=== PATIENT | male | born 1955 | race Caucasian/White ===

== ENCOUNTER 2017-08-15 08:52 | Day surgery (SDC) | payer BC ==
[~2017-08-15 08:52] MED LIST: Lactated Ringers 1,000 ML IV SCH; Lidocaine 2% 5 ML SDV ONE; Propofol 200 MG/20 ML SDV ONE
--- NOTE | 2017-08-15 10:25 | PCM.PREANE ---
Preanesthetic Assessment - Anesthesia/Transfusion/Family Hx Anesthesia History: No Prior Anesthesia Transfusion History: No Prior Transfusion(s) - Review of Systems General: No Symptoms Pulmonary: No Symptoms Cardiovascular: No Symptoms Gastrointestinal: No Symptoms Neurological: No Symptoms Other: Reports: None - Physical Assessment NPO Status Date: 08/14/17 O2 Sat by Pulse Oximetry: 97 Respiratory Rate: 16 Vital Signs: Last Vital Signs Temp 36.2 C 08/15/17 10:14 Pulse 79 08/15/17 10:14 Resp 16 08/15/17 10:14 BP 125/79 08/15/17 10:14 Pulse Ox 97 08/15/17 10:14 Height: 1.64 m Weight: 79.379 kg ASA Class: 2 Mental Status: Alert & Oriented x3 Airway Class: Mallampati = 1 Dentition: Reports: Normal Dentition ROM/Head Extension: Full Lungs: Clear to Auscultation, Normal Respiratory Effort Cardiovascular: Regular Rate, Regular Rhythm - Allergies Allergies/Adverse Reactions: Allergies Allergy/AdvReac Type Severity Reaction Status Date / Time No Known Allergies Allergy Verified 08/12/17 12:25 - Anesthesia Plan Pre-Op Medication Ordered: None - Acknowledgements Anesthesia Type Planned: MAC Pt an Appropriate Candidate for the Planned Anesthesia: Yes Alternatives and Risks of Anesthesia Discussed w Pt/Guardian: Yes Pt/Guardian Understands and Agrees with Anesthesia Plan: Yes Additional Comments: PMH: HTN, HLD PreAnesthesia Questionnaire Cardiovascular History: Reports: High Cholesterol, Hypertension Respiratory History: Reports: Other (See Below) Other Respiratory History: pneumonia 20 yrs ago Gastrointestinal History: Reports: None Genitourinary History: Reports: Renal Calculus Musculoskeletal History: Reports: Other (See Below) Other Musculoskeletal History: scoliosis Neurological History: Reports: None - Past Surgical History Head Surgeries/Procedures: Reports: None Neurological Surgical History: Reports: Scoliosis - SUBSTANCE USE Smoking Status *Q: Former Smoker Tobacco Use Within Last Twelve Months: No Recreational Drug Use History: No - HOME MEDS Home Medications: Home Meds Hydrochlorothiazide 12.5 mg PO DAILY 08/12/17 [History] Lisinopril 10 mg PO DAILY 08/12/17 [History] Multivitamin [Multivitamins] 1 tab PO DAILY 08/12/17 [History] Simvastatin [Zocor] 40 mg PO DAILY 08/12/17 [History] - CURRENT (IN HOUSE) MEDS Current Meds: Current Medications Lactated Ringer's (Ringers, Lactated) 1,000 mls @ 125 mls/hr IV ASDIRECTED JONI Last Admin: 08/15/17 10:16 Dose: 125 mls/hr Discontinued Medications Lidocaine (Xylocaine-Mpf 2%) Confirm Administered Dose 5 ml .ROUTE .STK-MED ONE Stop: 08/15/17 08:53 Propofol (Diprivan 20 Ml) Confirm Administered Dose 400 mg .ROUTE .STK-MED ONE Stop: 08/15/17 08:53
--- NOTE | 2017-08-15 12:18 | PCM.OPNOTE ---
- General Post-Op/Procedure Note Date of Surgery/Procedure: 08/15/17 Operative Procedure(s): Colonoscopy with cold rectal polypectomy Pre Op Diagnosis: Desire for colorectal cancer screening Post-Op Diagnosis: Rectal polyp Anesthesia Technique: MAC (ASA II) Primary Surgeon: Taye Zhong Condition: Good Free Text/Narrative:: Dictation [id number] CPT CODE 58484
[2017-08-15] MEDS ORDERED: Lactated Ringers 1,000 ML IV SCH (12:30)
--- NOTE | 2017-08-15 12:50 | PCM48HPAN ---
Post Anesthesia Note - EVALUATION WITHIN 48HRS OF ANESTHETIC Vital Signs in Normal Range: Yes Patient Participated in Evaluation: Yes Respiratory Function Stable: Yes Airway Patent: Yes Cardiovascular Function Stable: Yes Hydration Status Stable: Yes Pain Control Satisfactory: Yes Nausea and Vomiting Control Satisfactory: Yes Mental Status Recovered: Yes
--- NOTE | 2017-08-15 12:50 | PCM.POSTAN ---
POST ANESTHESIA ASSESSMENT - MENTAL STATUS Mental Status: Alert, Oriented - RESPIRATORY Respiratory Status: Respiratory Rate WNL, Airway Patent, O2 Saturation Stable - CARDIOVASCULAR CV Status: Pulse Rate WNL, Blood Pressure Stable - GASTROINTESTINAL GI Status: No Symptoms - POST OP HYDRATION Hydration Status: Adequate & Stable
--- NOTE | 2017-08-15 13:08 | OR ---
SURGEON: Taye Zhong M.D. DATE OF PROCEDURE: 08/15/2017 OPERATION PERFORMED: Colonoscopy with cold rectal polypectomy. ANESTHESIA: MAC. ASA CLASSIFICATION: II. PREOPERATIVE DIAGNOSIS: Desire for colorectal cancer screening. POSTOPERATIVE DIAGNOSIS: Rectal polyp. DESCRIPTION OF PROCEDURE: The patient was taken to the endoscopy room, positioned on the endoscopy table in the left lateral decubitus position. Time-out was called for appropriate identification of the patient and procedure. Monitored anesthesia care was provided. The colonoscope was inserted into the rectum and advanced with moderate difficulty to the cecum. The colonoscope was retroflexed in the cecum to visualize the ascending colon from below, then straightened and slowly withdrawn. Cecum ascending colon, hepatic flexure, transverse colon, splenic flexure, descending colon, and sigmoid colon showed no tumors, polyps, diverticula, or angiodysplastic changes. One small polyp was encountered in the rectum and removed with the cold biopsy forceps. The colonoscope was then retroflexed to visualize the anal orifice from above. No tumors, polyps, or acute hemorrhoidal changes were noted. The colonoscope was then straightened, the rectum aspirated, and the colonoscope removed. The patient tolerated the procedure well and was taken to recovery room in satisfactory condition. KIRSTIN / CHEMA /[id number]
== END 2017-08-15 12:53 | disposition home or self-care (01) ==
LOC: MW.SDS 08:52
PROVIDERS: ATTEND Surgery
DX: Z12.11 Encounter for screening for malignant neoplasm of colon (principal); D12.8 Benign neoplasm of rectum; I10 Essential (primary) hypertension; E78.00 Pure hypercholesterolemia, unspecified; Z79.899 Other long term (current) drug therapy; Z87.891 Personal history of nicotine dependence
CPT/HCPCS: 45380; 88305; J7120; J2704

== ENCOUNTER 2021-06-03 17:12 | Emergency (ER) | payer MEDICARE, OTHER ==
[2021-06-03] MEDS ORDERED: cefTRIAXone 1 GM in Premix Bag 1 BAG IV ONE (17:34)
[2021-06-03] MEDS ORDERED: Sodium Chloride 0.9% 2.5 ML Syringe FLUSH PRN (17:34)
[2021-06-03] MEDS ORDERED: Sodium Chloride 0.9% 10 ML Syringe FLUSH PRN (17:34)
[2021-06-03] MEDS ORDERED: Sodium Chloride 0.9% 1,000 ML IV ONE (17:37)
--- NOTE | 2021-06-03 17:37 | EDM.PDOC ---
<Bryant Nation - Last Filed: 06/03/21 19:38> ED HPI GENERAL MEDICAL PROBLEM - General Chief Complaint: Syncope Stated Complaint: EMS ARRIVAL Time Seen by Provider: 06/03/21 17:13 - History of Present Illness INITIAL COMMENTS - FREE TEXT/NARRATIVE: History of present illness: [] Patient is here for near syncope and dizziness. This morning he says he felt a little lightheaded and he passed out. He denies any injury. He felt better afterwards. This afternoon he began to feel lightheaded again and almost passed out but did not pass out. The patient's recent history is that 6 days ago he saw his doctor after 2 days of feeling dizzy. The dizziness is visual for vertiginous kind of rotation. Things seem to move and he says it is worse when he has his left eye open when he closes left eye it seems to be better. The patient got Dramamine and meclizine and got better. For several days he was markedly improved. He began to feel that way a little bit again today before the syncopal episode. The patient has a cough for about 6 days. It is a deep cough he says that he does not produce any sputum. The patient had a significant serious episode of pneumonia in his youth. He has not had any recent episodes. He is not vaccinated for COVID-19 he is presenting during our pandemic. Review of systems: As per history of present illness and below otherwise all systems reviewed and negative. Past medical history: As per history of present illness and as reviewed below otherwise noncontributory. Surgical history: As per history of present illness and as reviewed below otherwise noncon tributory. Social history: No reported history of drug or alcohol abuse. Family history: As per history of present illness and as reviewed below otherwise noncontributory. Physical exam: Constitutional - well developed, well-nourished and in no acute distress HEENT - normocephalic, no evidence of trauma - external nose and mouth normal - no mass in neck and no JVD - mucosae moist EYES - full EOM, PERRL, no icterus - no evidence of inflammation, injection, or drainage Respiratory - no respiratory distress, equal bilateral expansion, lungs with scattered rales mostly in the right base. Cardiovascular - Regular Rhythm with S1 and S2 appreciated and no murmur, gallop or rub. GI - abdomen soft without distension or organomegaly - normal bowel sounds - no guard or rebound Musculoskeletal no gross deformity of long bones or joints - no tenderness, swelling or edema Neurologic - Alert and oriented times four - CN II-XII grossly intact - motor sensory and coordination symmetrically normal Psychiatric - appropriate mood and affect with normal thought content Hematologic - No petechiae or purpura - mucosa appropriate color and sclera not pale - normal nail bed color and refill Integument - no rash or evidence of trauma - normal turgor Diagnostics: [] Therapeutics: [] Impression: [] Plan: [] Definitive disposition and diagnosis as appropriate pending reevaluation and colby baugh of above. - Related Data Allergies Allergy/AdvReac Type Severity Reaction Status Date / Time No Known Allergies Allergy Verified 06/03/21 17:25 Home Meds: Home Meds Simvastatin [Zocor] 40 mg PO DAILY 08/12/17 [History] hydroCHLOROthiazide [Hydrochlorothiazide] 12.5 mg PO DAILY 08/12/17 [History] Amoxicillin 875 mg PO BID 06/03/21 [History] Meclizine [Antivert] 25 mg PO TID PRN 06/03/21 [History] Past Medical History Cardiovascular History: Reports: High Cholesterol, Hypertension Respiratory History: Reports: Other (See Below) Other Respiratory History: pneumonia 20 yrs ago Gastrointestinal History: Reports: None Genitourinary History: Reports: Renal Calculus Musculoskeletal History: Reports: Other (See Below) Other Musculoskeletal History: scoliosis Neurological History: Reports: None - Past Surgical History Head Surgeries/Procedures: Reports: None Neurological Surgical History: Reports: Scoliosis ED ROS GENERAL - Review of Systems Review Of Systems: Comprehensive ROS is negative, except as noted in HPI. ED EXAM, GENERAL - Physical Exam Exam: See Below Free Text/Narrative:: My physical exam is in the HPI #1 Interpretation EKG Interpretation Comments: EKG done 06/03/2021 at 5:47 PM shows a sinus rhythm with a heart rate of 80 and a NM interval 166. QT durations 462 and axis -29 there is a borderline intraventricular conduction delay with QRS duration of 114. There is no prior for comparison there is no obvious acute MT. Impression no obvious acute injury Departure - Departure Disposition: Home, Self-Care 01 Condition: Good Clinical Impression: Vertigo, Syncope, Viral syndrome, COVID-19 virus infection - Discharge Information Instructions: Vertigo, [id number], Viral Illness, Adult, Syncope, [id number], Symptoms of COVID-19 - [facility] [place] (10/30/2020), COVID-19 Frequently Asked Questions, What You Should Know About COVID-19 to Protect Yourself and Others - CDC, 10 Things You Can Do to Manage Your COVID-19 Symptoms at Home - [facility] [place] (03/23/2021) Referrals: Eulalio Horn MD [Primary Care Provider] - Forms: ED Department Discharge Additional Instructions: Come to have his Zio patch placed. Drink tons of fluids. Follow-up with primary doctor. [facility] [address] [place] [id number] [facility] [address] [place] [id number] The following information is given to patients seen in the emergency department who are being discharged to home. This information is to outline your options for follow-up care. We provide all patients seen in our emergency department with a follow-up referral. The need for follow-up, as well as the timing and circumstances, are variable depending upon the specifics of your emergency department visit. If you don't have a primary care physician on staff, we will provide you with a referral. We always advise you to contact your personal physician following an emergency department visit to inform them of the circumstance of the visit and for follow-up with them and/or the need for any referrals to a consulting specialist. The emergency department will also refer you to a specialist when appropriate. This referral assures that you have the opportunity for follow-up care with a specialist. All of these measure are taken in an effort to provide you with optimal care, which includes your follow-up. Under all circumstances we always encourage you to contact your private physician who remains a resource for coordinating your care. When calling for follow-up care, please make the office aware that this follow-up is from your recent emergency room visit. If for any reason you are refused follow-up, please contact the [facility] Emergency Department at and asked to speak to the emergency department charge nurse. 1. Your COVID-19 screening is positive. That means you do have the coronavirus and you are considered contagious. Your vital signs and oxygen saturation are well enough that you were able to monitor your symptoms at home. Continue to monitor for trouble breathing, new confusion or inability to arouse, bluish lips or face or any of the other symptoms we discussed -if this occurs please return to the emergency room. 2. Please self quarantine over the next 10 days. Inform any persons that you have been in contact with since you started becoming symptomatic that you have tested positive; they should be made aware and take the appropriate steps as needed. 3. You can take NyQuil during the evening to help get a restful night sleep. May alternate Tylenol and ibuprofen as needed for pain and fever management. 4. The [facility] department will be calling you and following up with you. [facility] [place] COVID 19 Hotline phone number , They are open Friday - Friday 7am - 7pm. Follow up with your primary care provider for re-evaluation and re-testing after the 10 day quarantine and discuss when you should be seen. As we discussed, if you change your mind or want further treatment with Regeneron, please contact your doctor so they can assist you with getting the infusion. Please drink plenty of fluids. Get plenty of rest. Move slowly. It would be helpful to obtain a pulse oximeter from the pharmacy to that he can keep an eye on your oxygen level. If your oxygen levels are dropped below 90%, he should return to the ER so they can be reevaluated. Sepsis Event Note (ED) - Evaluation Sepsis Screening Result: No Definite Risk <Mook Wilhelm - Last Filed: 06/03/21 22:00> ED HPI GENERAL MEDICAL PROBLEM - History of Present Illness INITIAL COMMENTS - FREE TEXT/NARRATIVE: 06/03/2021 9:41 PM. Signout received at 7 PM. This is a 66-year-old gentleman who presents ER today secondary to feeling dizzy for a couple days as well as having syncopal episodes. Patient was seen by his doctor several days ago secondary to not feeling well. Patient's coronavirus test today is positive. Patient symptoms are highly likely secondary to his coronavirus infection. Patient's labs and work-up in the ER thus far has been negative. Given his episodes of syncope, Dr. Nation has ordered for the patient a Zio patch. Patient will be discharged home. Patient's pulse ox has been 97% on room air here in the ED. At this time he does not meet criteria for inpatient level of care for coronavirus. Patient will be given counseling on Regeneron treatment. Patient was given the information sheet but at this time he is not interested in Regeneron therapy until he speaks his own family doctor. Reassessment at the time of disposition demonstrates that the patient is in no acute distress. The patient has remained stable throughout the entire ED visit and is without objective evidence for acute process requiring urgent intervention or hospitalization. The patient is stable for discharge, counseling is provided as documented above, discussed symptomatic treatment and specific conditions for return. I have spoken with the patient/caregiver and discussed todays findings, in addition to providing specific details for the plan of care. Questions are answered and there is agreement with the plan. ED ROS GENERAL - Review of Systems Review Of Systems: See Below ED EXAM, GENERAL - Physical Exam Exam: See Below Course - Vital Signs Last Recorded V/S: Last Vital Signs Temp 97.2 F 06/03/21 17:21 Pulse 102 H 06/03/21 21:10 Resp 18 06/03/21 19:54 BP 124/82 06/03/21 21:10 Pulse Ox 93 L 06/03/21 21:10 - Orders/Labs/Meds Orders: Active Orders 24 hr Category Date Time Status Head wo Cont [CT] Stat Exams 06/03/21 19:04 Taken CULTURE BLOOD [BC] Stat Lab 06/03/21 17:39 Received CULTURE BLOOD [BC] Stat Lab 06/03/21 17:45 Received Sodium Chloride 0.9% [Saline Flush] Med 06/03/21 17:34 Active 10 ml FLUSH ASDIRECTED PRN Sodium Chloride 0.9% [Saline Flush] Med 06/03/21 17:34 Active 2.5 ml FLUSH ASDIRECTED PRN Blood Culture x2 Reflex Set [OM.PC] Stat Oth 06/03/21 17:35 Ordered Saline Lock Insert [OM.PC] Stat Oth 06/03/21 17:34 Ordered Medication Orders Sodium Chloride (Sodium Chloride 0.9% 10 Ml Syringe) 10 ml FLUSH ASDIRECTED PRN PRN Reason: Keep Vein Open Last Admin: 06/03/21 18:04 Dose: 10 ml Documented by: [id number] Sodium Chloride (Sodium Chloride 0.9% 2.5 Ml Syringe) 2.5 ml FLUSH ASDIRECTED PRN PRN Reason: Keep Vein Open Last Admin: 06/03/21 18:03 Dose: 2.5 ml Documented by: [id number] Labs: Laboratory Tests 06/03/21 06/03/21 06/03/21 Range/Units 17:28 17:28 17:28 WBC 6.04 (4.0-11.0) K/uL RBC 4.65 (4.50-5.90) M/uL Hgb 15.2 (13.0-17.0) g/dL Hct 43.8 (38.0-50.0) % MCV 94.2 (80.0-98.0) fL MCH 32.7 H (27.0-32.0) pg MCHC 34.7 (31.0-37.0) g/dL RDW Std Deviation 47.9 (28.0-62.0) fl RDW Coeff of Kellie 14 (11.0-15.0) % Plt Count 135 L (150-400) K/uL MPV 9.80 (7.40-12.00) fL Neut % (Auto) 68.3 (48.0-80.0) % Lymph % (Auto) 15.1 L (16.0-40.0) % Gaston % (Auto) 16.1 H (0.0-15.0) % Eos % (Auto) 0.2 (0.0-7.0) % Baso % (Auto) 0.3 (0.0-1.5) % Neut # (Auto) 4.1 (1.4-5.7) K/uL Lymph # (Auto) 0.9 (0.6-2.4) K/uL Gaston # (Auto) 1.0 H (0.0-0.8) K/uL Eos # (Auto) 0.0 (0.0-0.7) K/uL Baso # (Auto) 0.0 (0.0-0.1) K/uL Nucleated RBC % 0.0 /100WBC Nucleated RBCs # 0 K/uL Sodium 141 (136-148) mmol/L Potassium 3.2 L (3.5-5.1) mmol/L Chloride 102 (98-107) mmol/L Carbon Dioxide 28.1 (21.0-32.0) mmol/L BUN 19 H (7.0-18.0) mg/dL Creatinine 1.0 (0.8-1.3) mg/dL Est Cr Clr Drug Dosing 66.10 mL/min Estimated GFR (MDRD) > 60.0 ml/min Glucose 130 H (74-106) mg/dL Lactic Acid 1.6 (0.4-2.0) mmol/L Calcium 8.2 L (8.5-10.1) mg/dL Total Bilirubin 0.5 (0.2-1.0) mg/dL AST 23 (15-37) IU/L ALT 26 (14-63) IU/L Alkaline Phosphatase 40 L (46-116) U/L Troponin I < 0.050 (0.000-0.056) ng/mL Total Protein 6.7 (6.4-8.2) g/dL Albumin 3.2 L (3.4-5.0) g/dL Globulin 3.5 (2.6-4.0) g/dL Albumin/Globulin Ratio 0.9 (0.9-1.6) Urine Color Urine Appearance Urine pH (5.0-8.0) Ur Specific Raton (1.001-1.035) Urine Protein (NEGATIVE) mg/dL Urine Glucose (UA) (NEGATIVE) mg/dL Urine Ketones (NEGATIVE) mg/dL Urine Occult Blood (NEGATIVE) Urine Nitrite (NEGATIVE) Urine Bilirubin (NEGATIVE) Urine Urobilinogen (<2.0) EU/dL Ur Leukocyte Esterase (NEGATIVE) SARS-CoV-2 RNA (KAYLEE) (NEGATIVE) 06/03/21 06/03/21 Range/Units 18:27 19:36 WBC (4.0-11.0) K/uL RBC (4.50-5.90) M/uL Hgb (13.0-17.0) g/dL Hct (38.0-50.0) % MCV (80.0-98.0) fL MCH (27.0-32.0) pg MCHC (31.0-37.0) g/dL RDW Std Deviation (28.0-62.0) fl RDW Coeff of Kellie (11.0-15.0) % Plt Count (150-400) K/uL MPV (7.40-12.00) fL Neut % (Auto) (48.0-80.0) % Lymph % (Auto) (16.0-40.0) % Gaston % (Auto) (0.0-15.0) % Eos % (Auto) (0.0-7.0) % Baso % (Auto) (0.0-1.5) % Neut # (Auto) (1.4-5.7) K/uL Lymph # (Auto) (0.6-2.4) K/uL Gaston # (Auto) (0.0-0.8) K/uL Eos # (Auto) (0.0-0.7) K/uL Baso # (Auto) (0.0-0.1) K/uL Nucleated RBC % /100WBC Nucleated RBCs # K/uL Sodium (136-148) mmol/L Potassium (3.5-5.1) mmol/L Chloride (98-107) mmol/L Carbon Dioxide (21.0-32.0) mmol/L BUN (7.0-18.0) mg/dL Creatinine (0.8-1.3) mg/dL Est Cr Clr Drug Dosing mL/min Estimated GFR (MDRD) ml/min Glucose (74-106) mg/dL Lactic Acid (0.4-2.0) mmol/L Calcium (8.5-10.1) mg/dL Total Bilirubin (0.2-1.0) mg/dL AST (15-37) IU/L ALT (14-63) IU/L Alkaline Phosphatase (46-116) U/L Troponin I (0.000-0.056) ng/mL Total Protein (6.4-8.2) g/dL Albumin (3.4-5.0) g/dL Globulin (2.6-4.0) g/dL Albumin/Globulin Ratio (0.9-1.6) Urine Color YELLOW Urine Appearance CLEAR Urine pH 6.0 (5.0-8.0) Ur Specific Raton 1.025 (1.001-1.035) Urine Protein NEGATIVE (NEGATIVE) mg/dL Urine Glucose (UA) NEGATIVE (NEGATIVE) mg/dL Urine Ketones NEGATIVE (NEGATIVE) mg/dL Urine Occult Blood NEGATIVE (NEGATIVE) Urine Nitrite NEGATIVE (NEGATIVE) Urine Bilirubin NEGATIVE (NEGATIVE) Urine Urobilinogen 0.2 (<2.0) EU/dL Ur Leukocyte Esterase NEGATIVE (NEGATIVE) SARS-CoV-2 RNA (KAYLEE) POSITIVE H (NEGATIVE) Meds: Medications Generic Name Dose Route Start Last Admin Trade Name Freq PRN Reason Stop Dose Admin Sodium Chloride 10 ml 06/03/21 17:34 06/03/21 18:04 Sodium Chloride 0.9% 10 Ml Syringe FLUSH 10 ml ASDIRECTED PRN Administration Keep Vein Open Sodium Chloride 2.5 ml 06/03/21 17:34 06/03/21 18:03 Sodium Chloride 0.9% 2.5 Ml Syringe FLUSH 2.5 ml ASDIRECTED PRN Administration Keep Vein Open Discontinued Medications Generic Name Dose Route Start Last Admin Trade Name Freq PRN Reason Stop Dose Admin Ceftriaxone Sodium/Dextrose 1 50 mls @ 100 mls/hr 06/03/21 17:34 06/03/21 18:03 gm/ Premix IV 06/03/21 18:03 100 mls/hr ONETIME ONE Administration Sodium Chloride 1,000 mls @ 1,000 mls/hr 06/03/21 17:37 06/03/21 18:03 Normal Saline IV 06/03/21 18:36 1,000 mls/hr .Bolus ONE Administration Departure - Departure Time of Disposition: 21:53 Sepsis Event Note (ED) - Focused Exam Vital Signs: Vital Signs Temp Pulse Resp BP Pulse Ox 06/03/21 21:10 102 H 124/82 93 L 06/03/21 19:54 78 18 126/78 97 06/03/21 17:21 97.2 F 84 18 118/76 94 L
[2021-06-03 18:02] LABS: BLOOD UREA NITROGEN,BUN 19 mg/dL (7.0-18.0); CARBON DIOXIDE,CO2 28.1 mmol/L (21.0-32.0); CHLORIDE,CL 102 mmol/L (98-107); GLUCOSE RANDOM 130 mg/dL (74-106); POTASSIUM,K 3.2 mmol/L (3.5-5.1); SODIUM,NA 141 mmol/L (136-148)
--- NOTE | 2021-06-03 18:24 | CR ---
Indication: Cough. Technique: AP portable view of the chest. Comparison: March 17, 2013. Findings: The heart is normal in size. The lungs are clear. No infiltrate, pleural effusion, or pneumothorax is identified. Impression: No acute cardiopulmonary process Dictated by Marylou Wilder MD @ 06/03/2021 6:23:42 PM (Electronically Signed)
--- NOTE | 2021-06-03 21:53 | CT ---
Indication: Vertigo. Technique: Multiple contiguous axial images were obtained from the skullbase to the vertex without intravenous contrast enhancement. Please note that all CT scans at this facility use dose modulation, iterative reconstruction, and/or weight-based dosing when appropriate to reduce radiation dose to as low as reasonably achievable. Comparison: None Findings: The ventricles are symmetric and normal in size morphology. 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 No intra-axial or extra-axial hemorrhage is identified. No mass, mass effect or midline shift is identified. The bony calvarium is intact. Mild mucosal thickening is identified within the bilateral maxillary sinuses, ethmoid air cells, and frontal sinuses. Impression: No acute intracranial process Please note that all CT scans at this facility use dose modulation, iterative reconstruction, and/or weight-based dosing when appropriate to reduce radiation dose to as low as reasonably achievable. Dictated by Marylou Wilder MD @ 06/03/2021 9:51:23 PM (Electronically Signed)
== END 2021-06-03 22:25 | disposition home or self-care (01) ==
LOC: MW.ED 17:12
DX: U07.1 COVID-19 (principal); B34.9 Viral infection, unspecified; R55 Syncope and collapse; R42 Dizziness and giddiness; I10 Essential (primary) hypertension; E78.00 Pure hypercholesterolemia, unspecified; Z79.899 Other long term (current) drug therapy
CPT/HCPCS: 36415; 70450; 71045; 80053; 81003; 83605; 84484; 85025; 87040; 87804; 93005; 96365; 99285; J0696; J7030; U0002

== ENCOUNTER 2021-06-07 12:26 | Inpatient (IN) | payer MEDICARE, OTHER ==
[2021-06-07] MEDS ORDERED: Dexamethasone 10 MG/ML SDV IVPUSH ONE (12:34)
[2021-06-07 13:11] LABS: BLOOD UREA NITROGEN,BUN 24 mg/dL (7.0-18.0); CARBON DIOXIDE,CO2 31.8 mmol/L (21.0-32.0); CHLORIDE,CL 97 mmol/L (98-107); GLUCOSE RANDOM 131 mg/dL (74-106); POTASSIUM,K 3.7 mmol/L (3.5-5.1); SODIUM,NA 137 mmol/L (136-148)
[2021-06-07] MEDS ORDERED: Iopamidol 755 MG/ML 500 ML Multipack Bottle IVPUSH STA (13:54)
--- NOTE | 2021-06-07 14:59 | CT ---
INDICATION: COVID-19, hypoxia. TECHNIQUE: CT pulmonary angiogram utilizing 100 mL of Isovue-370 intravenous contrast. Coronal and sagittal reformats. COMPARISON: Chest radiograph 06/03/2021. FINDINGS: The central airways are patent. Moderate widespread heterogeneous ground-glass opacities with a peripheral and basilar predominance. No pneumothorax or pleural effusion. - No pulmonary to rule filling defect identified. Normal cardiac size. Scattered coronary artery calcifications. No pericardial effusion or thoracic lymphadenopathy. Normal caliber thoracic aorta. - The imaged upper abdomen appears unremarkable. No suspicious osseous lesion. IMPRESSION: 1. Moderate widespread heterogeneous ground-glass opacities typical of COVID-19. 2. No evidence of acute PE. Dictated by Kane Luna MD @ 06/07/2021 2:56:50 PM Please note that all CT scans at this facility use dose modulation, iterative reconstruction, and/or weight-based dosing when appropriate to reduce radiation dose to as low as reasonably achievable. Dictated by: Kane Luna MD @ 06/07/2021 14:56:56 (Electronically Signed)
--- NOTE | 2021-06-07 14:59 | PCM.EKG ---
#1 Interpretation EKG Date: 06/07/21 Time: 12:39 Rhythm: NSR Rate (Beats/Min): 84 [place]: LAD-Left [place] Deviation P-Wave: Present QRS: Normal ST-T: Normal QT: Normal Comparison: No Change (06/03/21) EKG Interpretation Comments: Sinus Rhythm
--- NOTE | 2021-06-07 15:49 | EDM.PDOC ---
ED HPI GENERAL MEDICAL PROBLEM - General Chief Complaint: Respiratory Problem Stated Complaint: HEADACHE,FEVER Time Seen by Provider: 06/07/21 12:28 - History of Present Illness INITIAL COMMENTS - FREE TEXT/NARRATIVE: CHIEF COMPLAINT(S): Hypoxia HISTORY OF PRESENT ILLNESS: This is a 66-year-old man with a past medical history of of hyperlipidemia and hypertension and recent diagnosis of COVID-19 who comes to the emergency department with a chief complaint of hypoxia. The patient states that he has been monitoring his vitals and his oxygen levels did decrease into the 80s. He states that he came to the emergency department because of this. He states that a visit here the other day for syncopal event however he has had no further syncopal episodes. He denies any chest pain but states that he is experiencing shortness of breath and nonproductive cough. He denies any other symptoms such as lower extremity edema, recent travel, recent surgery or prior history of DVT or PE. REVIEW OF SYSTEMS: Constitutional: Denies fever, chills. Eyes: Denies eye pain Ears, Nose, Mouth, & Throat: Denies earache Cardiovascular: Denies chest pain Respiratory: Positive for shortness of breath, nonproductive cough, hypoxia Gastrointestinal: Denies Nausea, vomiting, diarrhea, hematochezia. Genitourinary: Denies hematuria Skin:Denies a rash MSK: Denies joint pain Neurological: Denies blurred vision Psychiatric: Denies depression PAST MEDICAL HISTORY: As per history of present illness and as reviewed below otherwise noncontributory. SURGICAL HISTORY: As per history of present illness and as reviewed below otherwise noncontributory. SOCIAL HISTORY: As per history of present illness and as reviewed below otherwise noncontributory. FAMILY HISTORY: As per history of present illness and as reviewed below otherwise noncontributory. EXAMINATION OF ORGAN SYSTEMS/BODY AREAS: Constitutional: Blood pressure is 101/64, heart rate 88, respiratory rate 20 with an oxygen saturation of 86% on room air. Temperature 37.1. On 3 L nasal cannula patient's pulse oximetry was 93%. General: Elderly man who is in no acute distress Psychiatric: Appropriate mood and affect. Eyes: No scleral icterus or conjunctival erythema ENMT: Moist mucous membranes. No pharyngeal erythema Cardiovascular: Regular, rate, and rhythm. No gallops, murmurs, or rubs. Bilateral upper extremity pulses symmetric and intact. No peripheral edema. No JVD. Respiratory: Lungs clear to auscultation bilaterally. No wheezes, rales, or rhonchi. Gastrointestinal: Soft, non-tender, non-distended. Normoactive bowel sounds Genitourinary: No suprapubic tenderness Musculoskeletal: Normal range of motion. Skin: No lesions or abrasions. Neurological: Alert, GCS 15 MEDICAL DECISION MAKING AND COURSE IN THE ED WITH INTERPRETATION/REVIEW OF FIDELINA GNOSTIC STUDIES: This is a 66-year-old and with a past medical history of hypertension, hyperlipidemia and recent diagnosis of COVID-19 with a prior syncopal event who comes to the emergency department with continued hypoxia, shortness of breath and nonproductive cough who is profoundly hypoxic on room air. We did place the patient on cardiac monitoring and pulse oximetry. athletic monitor revealed sinus rhythm and pulse oximetry with good waveform was 86% on room air. We placed 3 L nasal cannula on the patient and his oxygenation did improve to 93%. At this time given his history of syncope will obtain a CT angiogram of the chest to evaluate for PE. Obtain CBC, CMP, EKG and troponin. We will provide the patient with 6 mg of Decadron. Differential includes bacterial pneumonia, COVID-19 pneumonia, pulmonary embolism. EKG was obtained which did not reveal any acute signs of ischemia. Laboratory: CBC is unremarkable. INR is normal. CMP reveals hypochloremia at 97, elevated BUN at 24, hyperglycemia at 131, hypocalcemia at 8.4, hypoalbuminemia at 2.9. Alkaline phosphatase is low at 37. The radiological images were viewed by myself along with reading the report from the radiologist. CT angiogram of the chest does not reveal any evidence of pulmonary embolism with moderate widespread groundglass opacities. After imaging I did discuss results with the patient. At this time given that he is requiring supplemental oxygenation I did discuss admission versus outpatient oxygen therapy. He preferred admission at this time. Therefore I contacted the hospitalist and she did accept him for admission. DISPOSITION: The patient was admitted to the hospital in stable condition CONDITION: Serious PROCEDURES: Cardiac monitoring interpretation, pulse oximetry interpretation FINAL IMPRESSION(S)/DIAGNOSES: 1. Acute hypoxic respiratory distress secondary to COVID-19 pneumonia Critical Care Procedure Note Authorized and performed by: Jalen Elmore M.D. Critical Care Time: 36 minutes Due to a high probability of clinically significant, life threatening deterioration, the patient required my highest level of preparedness to intervene emergently and I personally spent this critical care time directly and personally managing the patient. This critical care time included obtaining a history, examining the patient, pulse oximetry; ordering and review of studies; arranging urgent treatment with development of a management plan; evaluation of a patients reponse to treatment; frequent assessment; and discussions with other providers. This critical care time was performed to assess and manage the high probability of imminent, life threatening deterioration that could result in multiorgan failure. It was exclusive of separate billable procedures and treating other patients. Please see MDM section and rest of the note for further information on patient assessment and treatment. Please see MDM section and rest of the note for further information on patient assessment and treatment. Jalen Elmore M.D. - Related Data Allergies Allergy/AdvReac Type Severity Reaction Status Date / Time No Known Allergies Allergy Verified 06/07/21 12:33 Home Meds: Home Meds Simvastatin [Zocor] 40 mg PO DAILY 08/12/17 [History] hydroCHLOROthiazide [Hydrochlorothiazide] 12.5 mg PO DAILY 08/12/17 [History] Meclizine [Antivert] 25 mg PO TID PRN 06/03/21 [History] Past Medical History - Past Health History Medical/Surgical History: Denies Medical/Surgical History HEENT History: Reports: None Cardiovascular History: Reports: High Cholesterol, Hypertension Respiratory History: Reports: Other (See Below) Other Respiratory History: pneumonia 20 yrs ago Gastrointestinal History: Reports: None Genitourinary History: Reports: Renal Calculus Musculoskeletal History: Reports: Other (See Below) Other Musculoskeletal History: scoliosis Neurological History: Reports: None Psychiatric History: Reports: None Endocrine/Metabolic History: Reports: None Hematologic History: Reports: None Immunologic History: Reports: None Oncologic (Cancer) History: Reports: None Dermatologic History: Reports: None - Infectious Disease History Infectious Disease History: Reports: None - Past Surgical History Head Surgeries/Procedures: Reports: None Neurological Surgical History: Reports: Scoliosis Social & Family History - Family History Family Medical History: No Pertinent Family History - Tobacco Use Tobacco Use Status *Q: Never Tobacco User Second Hand Smoke Exposure: No - Caffeine Use Caffeine Use: Reports: None - Recreational Drug Use Recreational Drug Use: No ED ROS GENERAL - Review of Systems Review Of Systems: See Below ED EXAM, GENERAL - Physical Exam Exam: See Below Course - Vital Signs Last Recorded V/S: Last Vital Signs Temp 36.6 C 06/07/21 17:20 Pulse 74 06/07/21 17:20 Resp 18 06/07/21 17:20 BP 102/66 06/07/21 17:20 Pulse Ox 92 L 06/07/21 17:20 - Orders/Labs/Meds Orders: Active Orders 24 hr Category Date Time Status Cardiac Monitoring [RC] Q8H Care 06/07/21 12:29 Active Pulse Oximetry [RC] ASDIRECTED Care 06/07/21 12:29 Active Medication Orders Acetaminophen (Acetaminophen 325 Mg Tab) 650 mg PO Q4H PRN PRN Reason: Pain (Mild 1-3)/fever Albuterol/Ipratropium (Albuterol/Ipratropium 4 Gm Inhalation [place]) 0 gm INH QID [facility] Last Admin: 06/07/21 20:10 Dose: 1 puff Documented by: HARRY Dexamethasone (Dexamethasone 4 Mg Tab) 6 mg PO DAILY [facility] Enoxaparin Sodium (Enoxaparin 40 Mg/0.4 Ml Syringe) 40 mg SUBCUT Q24H [facility] Last Admin: 06/07/21 18:21 Dose: 40 mg Documented by: ERIK Remdesivir 100 mg/ Sodium (Chloride) 100 mls @ 100 mls/hr IV Q24H [facility] Stop: 06/11/21 17:59 Pantoprazole Sodium 40 mg/ (Sodium Chloride) 10 mls @ 300 mls/hr IV Q24H [facility] Ondansetron HCl (Ondansetron 4 Mg/2 Ml Sdv) 4 mg IVPUSH Q4H PRN PRN Reason: Nausea/Vomiting Labs: Laboratory Tests 06/07/21 06/07/21 06/07/21 Range/Units 12:38 12:38 12:38 WBC 10.11 (4.0-11.0) K/uL RBC 4.72 (4.50-5.90) M/uL Hgb 15.2 (13.0-17.0) g/dL Hct 44.2 (38.0-50.0) % MCV 93.6 (80.0-98.0) fL MCH 32.2 H (27.0-32.0) pg MCHC 34.4 (31.0-37.0) g/dL RDW Std Deviation 46.8 (28.0-62.0) fl RDW Coeff of Kellie 14 (11.0-15.0) % Plt Count 214 (150-400) K/uL MPV 9.80 (7.40-12.00) fL Neut % (Auto) 85.9 H (48.0-80.0) % Lymph % (Auto) 4.5 L (16.0-40.0) % [place] % (Auto) 9.5 (0.0-15.0) % Eos % (Auto) 0.0 (0.0-7.0) % Baso % (Auto) 0.1 (0.0-1.5) % Neut # (Auto) 8.7 H (1.4-5.7) K/uL Lymph # (Auto) 0.5 L (0.6-2.4) K/uL [place] # (Auto) 1.0 H (0.0-0.8) K/uL Eos # (Auto) 0.0 (0.0-0.7) K/uL Baso # (Auto) 0.0 (0.0-0.1) K/uL Nucleated RBC % 0.0 /100WBC Nucleated RBCs # 0 K/uL INR 1.08 Sodium 137 (136-148) mmol/L Potassium 3.7 (3.5-5.1) mmol/L Chloride 97 L (98-107) mmol/L Carbon Dioxide 31.8 (21.0-32.0) mmol/L BUN 24 H (7.0-18.0) mg/dL Creatinine 1.2 (0.8-1.3) mg/dL Est Cr Clr Drug Dosing 53.17 mL/min Estimated GFR (MDRD) > 60.0 ml/min Glucose 131 H (74-106) mg/dL Calcium 8.4 L (8.5-10.1) mg/dL Magnesium 2.0 (1.8-2.4) mg/dL Total Bilirubin 0.5 (0.2-1.0) mg/dL AST 37 (15-37) IU/L ALT 30 (14-63) IU/L Alkaline Phosphatase 37 L (46-116) U/L Troponin I < 0.050 (0.000-0.056) ng/mL C-Reactive Protein 17.70 H (0.00-0.90) mg/dL Total Protein 7.1 (6.4-8.2) g/dL Albumin 2.9 L (3.4-5.0) g/dL Globulin 4.2 H (2.6-4.0) g/dL Albumin/Globulin Ratio 0.7 L (0.9-1.6) Meds: Medications Generic Name Dose Route Start Last Admin Trade Name Chon PRN Reason Stop Dose Admin Acetaminophen 650 mg 06/07/21 16:01 Acetaminophen 325 Mg Tab PO Q4H PRN Pain (Mild 1-3)/fever Albuterol/Ipratropium 0 gm 06/07/21 18:00 06/07/21 20:10 Albuterol/Ipratropium 4 Gm Inhalation [place] INH 1 puff QID JONI Administration Dexamethasone 6 mg 06/08/21 09:00 Dexamethasone 4 Mg Tab PO DAILY JONI Enoxaparin Sodium 40 mg 06/07/21 16:15 06/07/21 18:21 Enoxaparin 40 Mg/0.4 Ml Syringe SUBCUT 40 mg Q24H JONI Administration Remdesivir 100 mg/ Sodium 100 mls @ 100 mls/hr 06/08/21 17:00 Chloride IV 06/11/21 17:59 Q24H JONI Pantoprazole Sodium 40 mg/ 10 mls @ 300 mls/hr 06/08/21 09:00 Sodium Chloride IV Q24H JONI Ondansetron HCl 4 mg 06/07/21 16:01 Ondansetron 4 Mg/2 Ml Sdv IVPUSH Q4H PRN Nausea/Vomiting Discontinued Medications Generic Name Dose Route Start Last Admin Trade Name Ramboq PRN Reason Stop Dose Admin Dexamethasone 6 mg 06/07/21 12:34 06/07/21 13:05 Dexamethasone 10 Mg/Ml Sdv IVPUSH 06/07/21 12:35 6 mg ONETIME ONE Administration Dexamethasone 5 mg 06/08/21 09:00 Dexamethasone 4 Mg Tab PO DAILY JONI Remdesivir 200 mg/ Sodium 250 mls @ 250 mls/hr 06/07/21 17:00 06/07/21 18:15 Chloride IV 06/07/21 17:59 250 mls/hr ONETIME ONE Administration Iopamidol 100 ml 06/07/21 13:54 06/07/21 13:55 Iopamidol 755 Mg/Ml 500 Ml Multipack Bottle IVPUSH 06/07/21 13:55 100 ml ONETIME STA Administration Departure - Departure Time of Disposition: 15:25 Disposition: Admitted As Inpatient 64 Clinical Impression: COVID-19 virus infection - Discharge Information Sepsis Event Note (ED) - Evaluation Sepsis Screening Result: No Definite Risk - Focused Exam Vital Signs: Vital Signs Temp Temp Pulse Resp BP Pulse Ox 06/07/21 15:06 96 06/07/21 14:53 36.5 C 82 15 106/68 95 06/07/21 13:19 84 17 97/58 L 93 L 06/07/21 12:37 82 20 106/71 93 L 06/07/21 12:35 37.8 C 06/07/21 12:28 37.1 C 88 20 101/64 86 L - My Orders Last 24 Hours: My Active Orders 06/07/21 12:29 Cardiac Monitoring [RC] Q8H Pulse Oximetry [RC] ASDIRECTED - Assessment/Plan Last 24 Hours: My Active Orders 06/07/21 12:29 Cardiac Monitoring [RC] Q8H Pulse Oximetry [RC] ASDIRECTED
[2021-06-07] MEDS ORDERED: Ondansetron 4 MG/2 ML SDV IVPUSH PRN (16:01)
[2021-06-07] MEDS ORDERED: REMDESIVIR 200 MG in Sodium Chloride 0.9% 250 ML IV ONE (17:00)
[2021-06-07] MEDS: Enoxaparin 40 MG/0.4 ML Syringe SUBCUT SCH (18:21)
--- NOTE | 2021-06-07 18:31 | PCM.HP.2 ---
H&P History of Present Illness - General Date of Service: 06/07/21 Admit Problem/Dx: Admission Diagnosis/Problem Admission Diagnosis/Problem Hypoxia History Limitations: Reports: No Limitations - History of Present Illness Initial Comments - Free Text/Narative: This is a 66-year-old and with a past medical history of hypertension, hyperlipidemia and recent diagnosis of COVID-19 on 03 June, with a prior syncopal event who comes to the emergency department with continued hypoxia, shortness of breath and nonproductive cough patient was found to be hypoxic on room air and hence was placed on 3 L nasal cannula on the patient and his oxygenation did improve to 93%. Laboratory: CBC is unremarkable. INR is normal. CMP reveals hypochloremia at 97, elevated BUN at 24, hyperglycemia at 131, hypocalcemia at 8.4, hypoalbuminemia at 2.9. Alkaline phosphatase is low at 37. CT angiogram of the chest does not reveal any evidence of pulmonary embolism with moderate widespread groundglass opacities. Patient was admitted to the hospital for acute hypoxic respiratory failure secondary to Covid. Patient is unvaccinated currently. - Related Data Allergies/Adverse Reactions: Allergies Allergy/AdvReac Type Severity Reaction Status Date / Time No Known Allergies Allergy Verified 06/07/21 12:33 Home Medications: Home Meds Simvastatin [Zocor] 40 mg PO DAILY 08/12/17 [History] hydroCHLOROthiazide [Hydrochlorothiazide] 12.5 mg PO DAILY 08/12/17 [History] Meclizine [Antivert] 25 mg PO TID PRN 06/03/21 [History] Past Medical History - Past Health History Medical/Surgical History: Denies Medical/Surgical History HEENT History: Reports: None Cardiovascular History: Reports: High Cholesterol, Hypertension Respiratory History: Reports: Other (See Below) Other Respiratory History: pneumonia 20 yrs ago Gastrointestinal History: Reports: None Genitourinary History: Reports: Renal Calculus Musculoskeletal History: Reports: Other (See Below) Other Musculoskeletal History: scoliosis Neurological History: Reports: None Psychiatric History: Reports: None Endocrine/Metabolic History: Reports: None Hematologic History: Reports: None Immunologic History: Reports: None Oncologic (Cancer) History: Reports: None Dermatologic History: Reports: None - Infectious Disease History Infectious Disease History: Reports: None - Past Surgical History Head Surgeries/Procedures: Reports: None Neurological Surgical History: Reports: Scoliosis Social & Family History - Family History Family Medical History: No Pertinent Family History - Tobacco Use Tobacco Use Status *Q: Never Tobacco User Second Hand Smoke Exposure: No - Caffeine Use Caffeine Use: Reports: None - Recreational Drug Use Recreational Drug Use: No H&P Review of Systems - Review of Systems: Review Of Systems: See Below General: Reports: Malaise, Weakness, Fatigue. Denies: Fever, Chills Pulmonary: Reports: Shortness of Breath, Cough, Sputum. Denies: Wheezing Cardiovascular: Reports: Dyspnea on Exertion. Denies: Chest Pain, Palpitations, Orthopnea Gastrointestinal: Denies: Abdominal Pain, Anorexia, Black Stool Genitourinary: Denies: Frequency, Burning Musculoskeletal: Denies: Neck Pain, Shoulder Pain, Arm Pain Skin: Denies: Cyanosis, Jaundice, Mottled Psychiatric: Denies: Confusion, Depression, Mood Lability Neurological: Denies: Confusion, Dizziness, Headache Hematologic/Lymphatic: Denies: Anemia, Easy Bleeding, Easy Bruising Exam - Exam Exam: See Below - Vital Signs Vital Signs: Last Vital Signs Temp 36.5 C 06/07/21 14:53 Pulse 82 06/07/21 14:53 Resp 15 06/07/21 14:53 BP 106/68 06/07/21 14:53 Pulse Ox 96 06/07/21 15:06 Weight: 74.843 kg - Exam Quality Assessment: Supplemental Oxygen Neck: Supple Lungs: Normal Respiratory Effort, Decreased Breath Sounds, Crackles, Rales Cardiovascular: Regular Rhythm, Normal S1, Normal S2 GI/Abdominal Exam: Normal Bowel Sounds, Soft, Non-Tender - Patient Data Lab Results Last 24 hrs: Laboratory Results - last 24 hr 06/07/21 06/07/21 06/07/21 Range/Units 12:38 12:38 12:38 WBC 10.11 (4.0-11.0) K/uL RBC 4.72 (4.50-5.90) M/uL Hgb 15.2 (13.0-17.0) g/dL Hct 44.2 (38.0-50.0) % MCV 93.6 (80.0-98.0) fL MCH 32.2 H (27.0-32.0) pg MCHC 34.4 (31.0-37.0) g/dL RDW Std Deviation 46.8 (28.0-62.0) fl RDW Coeff of Kellie 14 (11.0-15.0) % Plt Count 214 (150-400) K/uL MPV 9.80 (7.40-12.00) fL Neut % (Auto) 85.9 H (48.0-80.0) % Lymph % (Auto) 4.5 L (16.0-40.0) % [place] % (Auto) 9.5 (0.0-15.0) % Eos % (Auto) 0.0 (0.0-7.0) % Baso % (Auto) 0.1 (0.0-1.5) % Neut # (Auto) 8.7 H (1.4-5.7) K/uL Lymph # (Auto) 0.5 L (0.6-2.4) K/uL [place] # (Auto) 1.0 H (0.0-0.8) K/uL Eos # (Auto) 0.0 (0.0-0.7) K/uL Baso # (Auto) 0.0 (0.0-0.1) K/uL Nucleated RBC % 0.0 /100WBC Nucleated RBCs # 0 K/uL INR 1.08 Sodium 137 (136-148) mmol/L Potassium 3.7 (3.5-5.1) mmol/L Chloride 97 L (98-107) mmol/L Carbon Dioxide 31.8 (21.0-32.0) mmol/L BUN 24 H (7.0-18.0) mg/dL Creatinine 1.2 (0.8-1.3) mg/dL Est Cr Clr Drug Dosing 53.17 mL/min Estimated GFR (MDRD) > 60.0 ml/min Glucose 131 H (74-106) mg/dL Calcium 8.4 L (8.5-10.1) mg/dL Magnesium 2.0 (1.8-2.4) mg/dL Total Bilirubin 0.5 (0.2-1.0) mg/dL AST 37 (15-37) IU/L ALT 30 (14-63) IU/L Alkaline Phosphatase 37 L (46-116) U/L Troponin I < 0.050 (0.000-0.056) ng/mL C-Reactive Protein 17.70 H (0.00-0.90) mg/dL Total Protein 7.1 (6.4-8.2) g/dL Albumin 2.9 L (3.4-5.0) g/dL Globulin 4.2 H (2.6-4.0) g/dL Albumin/Globulin Ratio 0.7 L (0.9-1.6) Result Diagrams: 06/07/21 12:38 06/07/21 12:38 Sepsis Event Note - Evaluation Sepsis Screening Result: No Definite Risk - Focused Exam Vital Signs: Vital Signs Temp Temp Pulse Resp BP Pulse Ox 06/07/21 15:06 96 06/07/21 14:53 36.5 C 82 15 106/68 95 06/07/21 13:19 84 17 97/58 L 93 L 06/07/21 12:37 82 20 106/71 93 L 06/07/21 12:35 37.8 C 06/07/21 12:28 37.1 C 88 20 101/64 86 L Problem List Initiated/Reviewed/Updated: Yes Orders Last 24hrs: Active Orders 24 hr Category Date Time Status Admission Status [Patient Status] [ADT] Stat ADT 06/07/21 15:25 Active Ambulate [RC] ASDIRECTED Care 06/07/21 16:01 Active Antiembolic Devices [RC] PER UNIT ROUTINE Care 06/07/21 16:03 Active Cardiac Monitoring [RC] . DIRECTED Care 06/07/21 12:29 Active IS (RT) [RT Incentive Spirometry] [RC] Q2HWA Care 06/07/21 16:07 Active Oxygen Therapy [RC] PRN Care 06/07/21 16:01 Active Pulse Oximetry [RC] ASDIRECTED Care 06/07/21 12:29 Active RT Post Treatment Assessment [RC] Click to Edit Care 06/07/21 16:04 Active RT Pre-Treatment Assessment [RC] Click to Edit Care 06/07/21 16:04 Active VTE/DVT Education [RC] PER UNIT ROUTINE Care 06/07/21 16:01 Active Vital Signs [RC] Q4H Care 06/07/21 16:01 Active Heart Healthy Diet [DIET] Diet 06/07/21 Dinner Active CBC WITH AUTO DIFF [HEME] AM Lab 06/08/21 05:11 Ordered CMP [COMPREHENSIVE METABOLIC PN,CMP] [CHEM] AM Lab 06/08/21 05:11 Ordered MAGNESIUM [CHEM] AM Lab 06/08/21 05:11 Ordered PHOSPHORUS [CHEM] AM Lab 06/08/21 05:11 Ordered Acetaminophen [TylenoL] Med 06/07/21 16:01 Active 650 mg PO Q4H PRN Albuterol/Ipratropium [Combivent Respimat] Med 06/07/21 18:00 Active See Dose Instructions INH QID Enoxaparin [Lovenox] Med 06/07/21 16:15 Active 40 mg SUBCUT Q24H Ondansetron [Zofran] Med 06/07/21 16:01 Active 4 mg IVPUSH Q4H PRN Pantoprazole [ProTONIX IV] 40 mg Med 06/08/21 09:00 Active Sodium Chloride 0.9% [Normal Saline] 10 ml IV Q24H Remdesivir 100 mg Med 06/08/21 17:00 Active Sodium Chloride 0.9% [Normal Saline] 100 ml IV Q24H dexAMETHasone Med 06/08/21 09:00 Active 6 mg PO DAILY Sequential Compression Device [OM.PC] Per Unit Routine Oth 06/07/21 16:02 Ordered Medication Orders Acetaminophen (Acetaminophen 325 Mg Tab) 650 mg PO Q4H PRN PRN Reason: Pain (Mild 1-3)/fever Albuterol/Ipratropium (Albuterol/Ipratropium 4 Gm Inhalation [place]) 0 gm INH QID JONI Dexamethasone (Dexamethasone 4 Mg Tab) 6 mg PO DAILY [facility] Enoxaparin Sodium (Enoxaparin 40 Mg/0.4 Ml Syringe) 40 mg SUBCUT Q24H [facility] Last Admin: 06/07/21 18:21 Dose: 40 mg Documented by: ERIK Remdesivir 100 mg/ Sodium (Chloride) 100 mls @ 100 mls/hr IV Q24H JONI Stop: 06/11/21 17:59 Pantoprazole Sodium 40 mg/ (Sodium Chloride) 10 mls @ 300 mls/hr IV Q24H JONI Ondansetron HCl (Ondansetron 4 Mg/2 Ml Sdv) 4 mg IVPUSH Q4H PRN PRN Reason: Nausea/Vomiting Assessment/Plan Comment:: Patient is a 66-year-old male admitted for acute hypoxic respiratory failure se condary to Covid pneumonia Start patient on IV remdesivir, oral Decadron Start patient on Lovenox for DVT prophylaxis Start patient on scheduled Combivent Cough syrup as needed Incentive spirometry IV Zofran for nausea IV PPI daily for GI prophylaxis Check CMP daily monitor LFTs closely
[2021-06-07] MEDS: Albuterol/Ipratropium 4 GM Inhalation Spray INH SCH (20:10)
[2021-06-07] MEDS: Acetaminophen 325 MG Tab PO PRN (23:42)
[2021-06-07] MEDS: Codeine/guaiFENesin 10-100 MG/5 ML Syrup 5 ML Cup PO PRN (23:43)
[2021-06-08] MEDS: Albuterol/Ipratropium 4 GM Inhalation Spray INH SCH ×4 (00:09→18:58)
[2021-06-08 07:41] LABS: BLOOD UREA NITROGEN,BUN 26 mg/dL (7.0-18.0); CARBON DIOXIDE,CO2 32.2 mmol/L (21.0-32.0); CHLORIDE,CL 100 mmol/L (98-107); GLUCOSE RANDOM 98 mg/dL (74-106); POTASSIUM,K 4.1 mmol/L (3.5-5.1); SODIUM,NA 141 mmol/L (136-148)
[2021-06-08] MEDS: Acetaminophen 325 MG Tab PO PRN ×2 (07:55→21:15)
[2021-06-08] MEDS ORDERED: Pantoprazole 40 MG Vial IV SCH (09:00)
[2021-06-08] MEDS ORDERED: Dexamethasone 4 MG Tab PO SCH (09:00)
[2021-06-08] MEDS: Pantoprazole 40 MG in Sodium Chloride 0.9% 10 ML IV SCH (10:12)
[2021-06-08] MEDS: Dexamethasone 4 MG Tab PO SCH (10:12)
--- NOTE | 2021-06-08 14:29 | PCM.PN ---
- General Info Date of Service: 06/08/21 Admission Dx/Problem (Free Text): Admission Diagnosis/Problem Admission Diagnosis/Problem Hypoxia Subjective Update: seen at bedside, on chair, resting comfortably, no chest pain - Review of Systems General: Reports: Weakness, Fatigue. Denies: Fever Pulmonary: Reports: Shortness of Breath, Pleuritic Chest Pain, Cough, Sputum Cardiovascular: Reports: Palpitations, Dyspnea on Exertion. Denies: Chest Pain Gastrointestinal: Reports: Abdominal Pain. Denies: Constipation, Decreased Appetite Genitourinary: Denies: Dysuria, Frequency, Burning Musculoskeletal: Reports: Neck Pain, Shoulder Pain, Arm Pain Skin: Reports: Cyanosis, Jaundice - Patient Data Vitals - Most Recent: Last Vital Signs Temp 36.9 C 06/08/21 12:48 Pulse 86 06/08/21 12:48 Resp 28 H 06/08/21 12:48 BP 108/72 06/08/21 12:48 Pulse Ox 93 L 06/08/21 12:48 Weight - Most Recent: 73.5 kg I&O - Last 24 Hours: Intake & Output 06/07/21 06/08/21 06/08/21 22:59 06:59 14:59 Intake Total 400 50 Balance 400 50 Lab Results Last 24 Hours: Laboratory Results - last 24 hr 06/08/21 06/08/21 Range/Units 04:58 04:58 WBC 11.92 H (4.0-11.0) K/uL RBC 4.77 (4.50-5.90) M/uL Hgb 15.3 (13.0-17.0) g/dL Hct 44.7 (38.0-50.0) % MCV 93.7 (80.0-98.0) fL MCH 32.1 H (27.0-32.0) pg MCHC 34.2 (31.0-37.0) g/dL RDW Std Deviation 47.0 (28.0-62.0) fl RDW Coeff of Kellie 14 (11.0-15.0) % Plt Count 222 (150-400) K/uL MPV 10.20 (7.40-12.00) fL Neut % (Auto) 85.5 H (48.0-80.0) % Lymph % (Auto) 4.8 L (16.0-40.0) % [place] % (Auto) 9.6 (0.0-15.0) % Eos % (Auto) 0.0 (0.0-7.0) % Baso % (Auto) 0.1 (0.0-1.5) % Neut # (Auto) 10.2 H (1.4-5.7) K/uL Lymph # (Auto) 0.6 (0.6-2.4) K/uL [place] # (Auto) 1.1 H (0.0-0.8) K/uL Eos # (Auto) 0.0 (0.0-0.7) K/uL Baso # (Auto) 0.0 (0.0-0.1) K/uL Nucleated RBC % 0.0 /100WBC Nucleated RBCs # 0 K/uL Sodium 141 (136-148) mmol/L Potassium 4.1 (3.5-5.1) mmol/L Chloride 100 (98-107) mmol/L Carbon Dioxide 32.2 H (21.0-32.0) mmol/L BUN 26 H (7.0-18.0) mg/dL Creatinine 0.8 (0.8-1.3) mg/dL Est Cr Clr Drug Dosing 76.88 mL/min Estimated GFR (MDRD) > 60.0 ml/min Glucose 98 (74-106) mg/dL Calcium 8.5 (8.5-10.1) mg/dL Phosphorus 3.3 (2.6-4.7) mg/dL Magnesium 2.3 (1.8-2.4) mg/dL Total Bilirubin 0.5 (0.2-1.0) mg/dL AST 30 (15-37) IU/L ALT 31 (14-63) IU/L Alkaline Phosphatase 39 L (46-116) U/L Total Protein 6.3 L (6.4-8.2) g/dL Albumin 2.7 L (3.4-5.0) g/dL Globulin 3.6 (2.6-4.0) g/dL Albumin/Globulin Ratio 0.8 L (0.9-1.6) Med Orders - Current: Current Medications Acetaminophen (Acetaminophen 325 Mg Tab) 650 mg PO Q4H PRN PRN Reason: Pain (Mild 1-3)/fever Last Admin: 06/08/21 07:55 Dose: 650 mg Documented by: Albuterol/Ipratropium (Albuterol/Ipratropium 4 Gm Inhalation [place]) 0 gm INH QID [facility] Last Admin: 06/08/21 11:59 Dose: 1 puff Documented by: Dexamethasone (Dexamethasone 4 Mg Tab) 6 mg PO DAILY [facility] Last Admin: 06/08/21 10:12 Dose: 6 mg Documented by: Enoxaparin Sodium (Enoxaparin 40 Mg/0.4 Ml Syringe) 40 mg SUBCUT Q24H [facility] Last Admin: 06/07/21 18:21 Dose: 40 mg Documented by: Guaifenesin/Codeine Phosphate (Codeine/Guaifenesin 10-100 Mg/5 Ml Syrup 5 Ml Cup) 5 ml PO Q4H PRN PRN Reason: Cough Last Admin: 06/07/21 23:43 Dose: 5 ml Documented by: Remdesivir 100 mg/ Sodium (Chloride) 100 mls @ 100 mls/hr IV Q24H [facility] Stop: 06/11/21 17:59 Pantoprazole Sodium 40 mg/ (Sodium Chloride) 10 mls @ 300 mls/hr IV Q24H [facility] Last Admin: 06/08/21 10:12 Dose: 300 mls/hr Documented by: Ondansetron HCl (Ondansetron 4 Mg/2 Ml Sdv) 4 mg IVPUSH Q4H PRN PRN Reason: Nausea/Vomiting Discontinued Medications Dexamethasone (Dexamethasone 10 Mg/Ml Sdv) 6 mg IVPUSH ONETIME ONE Stop: 06/07/21 12:35 Last Admin: 06/07/21 13:05 Dose: 6 mg Documented by: Dexamethasone (Dexamethasone 4 Mg Tab) 5 mg PO DAILY [facility] Remdesivir 200 mg/ Sodium (Chloride) 250 mls @ 250 mls/hr IV ONETIME ONE Stop: 06/07/21 17:59 Last Admin: 06/07/21 18:15 Dose: 250 mls/hr Documented by: Iopamidol (Iopamidol 755 Mg/Ml 500 Ml Multipack Bottle) 100 ml IVPUSH ONETIME STA Stop: 06/07/21 13:55 Last Admin: 06/07/21 13:55 Dose: 100 ml Documented by: - Exam Quality Assessment: Supplemental Oxygen General: Alert, Oriented Lungs: Normal Respiratory Effort, Decreased Breath Sounds, Crackles Cardiovascular: Regular Rate, Regular Rhythm GI/Abdominal Exam: Normal Bowel Sounds, Soft, Non-Tender - Patient Data Lab Results Last 24 hrs: Laboratory Results - last 24 hr 06/08/21 06/08/21 Range/Units 04:58 04:58 WBC 11.92 H (4.0-11.0) K/uL RBC 4.77 (4.50-5.90) M/uL Hgb 15.3 (13.0-17.0) g/dL Hct 44.7 (38.0-50.0) % MCV 93.7 (80.0-98.0) fL MCH 32.1 H (27.0-32.0) pg MCHC 34.2 (31.0-37.0) g/dL RDW Std Deviation 47.0 (28.0-62.0) fl RDW Coeff of Kellie 14 (11.0-15.0) % Plt Count 222 (150-400) K/uL MPV 10.20 (7.40-12.00) fL Neut % (Auto) 85.5 H (48.0-80.0) % Lymph % (Auto) 4.8 L (16.0-40.0) % [place] % (Auto) 9.6 (0.0-15.0) % Eos % (Auto) 0.0 (0.0-7.0) % Baso % (Auto) 0.1 (0.0-1.5) % Neut # (Auto) 10.2 H (1.4-5.7) K/uL Lymph # (Auto) 0.6 (0.6-2.4) K/uL [place] # (Auto) 1.1 H (0.0-0.8) K/uL Eos # (Auto) 0.0 (0.0-0.7) K/uL Baso # (Auto) 0.0 (0.0-0.1) K/uL Nucleated RBC % 0.0 /100WBC Nucleated RBCs # 0 K/uL Sodium 141 (136-148) mmol/L Potassium 4.1 (3.5-5.1) mmol/L Chloride 100 (98-107) mmol/L Carbon Dioxide 32.2 H (21.0-32.0) mmol/L BUN 26 H (7.0-18.0) mg/dL Creatinine 0.8 (0.8-1.3) mg/dL Est Cr Clr Drug Dosing 76.88 mL/min Estimated GFR (MDRD) > 60.0 ml/min Glucose 98 (74-106) mg/dL Calcium 8.5 (8.5-10.1) mg/dL Phosphorus 3.3 (2.6-4.7) mg/dL Magnesium 2.3 (1.8-2.4) mg/dL Total Bilirubin 0.5 (0.2-1.0) mg/dL AST 30 (15-37) IU/L ALT 31 (14-63) IU/L Alkaline Phosphatase 39 L (46-116) U/L Total Protein 6.3 L (6.4-8.2) g/dL Albumin 2.7 L (3.4-5.0) g/dL Globulin 3.6 (2.6-4.0) g/dL Albumin/Globulin Ratio 0.8 L (0.9-1.6) Result Diagrams: 06/08/21 04:58 06/08/21 04:58 Sepsis Event Note - Evaluation Sepsis Screening Result: No Definite Risk - Focused Exam Vital Signs: Vital Signs Temp Temp Pulse Resp BP Pulse Ox 06/08/21 12:48 36.9 C 86 28 H 108/72 93 L 06/08/21 07:56 37.9 C 87 14 115/78 89 L 06/08/21 07:55 37.9 C 06/08/21 05:00 36.9 C 69 17 102/50 L 93 L - Problem List & Annotations (1) Hypoxia SNOMED Code(s): 197849801 Code(s): R09.02 - HYPOXEMIA Status: Acute Current Visit: Yes (2) COVID-19 virus infection SNOMED Code(s): 537338498 Code(s): U07.1 - COVID-19 Status: Acute Current Visit: Yes (3) Syncope SNOMED Code(s): 901954885 Code(s): R55 - SYNCOPE AND COLLAPSE Status: Acute Current Visit: No - Problem List Review Problem List Initiated/Reviewed/Updated: Yes - My Orders Last 24 Hours: My Active Orders 06/07/21 Dinner Heart Healthy Diet [DIET] 06/07/21 16:01 Ambulate [RC] ASDIRECTED Oxygen Therapy [RC] PRN VTE/DVT Education [RC] PER UNIT ROUTINE Vital Signs [RC] Q4H Acetaminophen [TylenoL] 650 mg PO Q4H PRN Ondansetron [Zofran] 4 mg IVPUSH Q4H PRN 06/07/21 16:02 Sequential Compression Device [OM.PC] Per Unit Routine 06/07/21 16:03 Antiembolic Devices [RC] PER UNIT ROUTINE 06/07/21 16:04 RT Post Treatment Assessment [RC] Click to Edit RT Pre-Treatment Assessment [RC] Click to Edit 06/07/21 16:07 IS (RT) [RT Incentive Spirometry] [RC] Q2HWA 06/07/21 16:15 Enoxaparin [Lovenox] 40 mg SUBCUT Q24H 06/07/21 16:29 Telemetry Monitoring [Cardiac Monitoring] [RC] . DIRECTED 06/07/21 18:00 Albuterol/Ipratropium [Combivent Respimat] See Dose Instructions INH QID 06/07/21 23:09 Codeine/guaiFENesin [Robitussin AC] 5 ml PO Q4H PRN 06/08/21 09:00 Pantoprazole [ProTONIX IV] 40 mg Sodium Chloride 0.9% [Normal Saline] 10 ml IV Q24H dexAMETHasone 6 mg PO DAILY 06/08/21 17:00 Remdesivir 100 mg Sodium Chloride 0.9% [Normal Saline] 100 ml IV Q24H - Plan Plan:: Patient is a 66-year-old male admitted for acute hypoxic respiratory failure secondary to Covid pneumonia cont patient on IV remdesivir, oral Decadron cont patient on Lovenox for DVT prophylaxis cont patient on scheduled Combivent Cough syrup as needed Incentive spirometry IV Zofran for nausea IV PPI daily for GI prophylaxis Check CMP daily monitor LFTs closely Wean off oxygen as able
[2021-06-08] MEDS: Enoxaparin 40 MG/0.4 ML Syringe SUBCUT SCH (16:33)
[2021-06-08] MEDS: REMDESIVIR 100 MG in Sodium Chloride 0.9% 100 ML IV SCH (16:34)
[2021-06-09] MEDS: Albuterol/Ipratropium 4 GM Inhalation Spray INH SCH ×5 (00:11→23:11)
[2021-06-09] MEDS: Codeine/guaiFENesin 10-100 MG/5 ML Syrup 5 ML Cup PO PRN (04:34)
[2021-06-09 06:37] LABS: BLOOD UREA NITROGEN,BUN 22 mg/dL (7.0-18.0); CARBON DIOXIDE,CO2 29.8 mmol/L (21.0-32.0); CHLORIDE,CL 100 mmol/L (98-107); GLUCOSE RANDOM 100 mg/dL (74-106); POTASSIUM,K 4.2 mmol/L (3.5-5.1); SODIUM,NA 140 mmol/L (136-148)
[2021-06-09] MEDS: Dexamethasone 4 MG Tab PO SCH (08:20)
[2021-06-09] MEDS: Pantoprazole 40 MG in Sodium Chloride 0.9% 10 ML IV SCH (08:22)
[2021-06-09] MEDS: Acetaminophen 325 MG Tab PO PRN ×2 (08:24→18:39)
--- NOTE | 2021-06-09 15:01 | PCM.PN ---
- General Info Date of Service: 06/09/21 Admission Dx/Problem (Free Text): Admission Diagnosis/Problem Admission Diagnosis/Problem Hypoxia Subjective Update: seen at bedside, on chair, resting comfortably, no chest pain, patient had an episode of shortness of breath and hypoxia this a.m. so oxygen was increased from 3 L to 5 L this a.m. shortness of breath is resolved now. - Review of Systems General: Reports: Weakness, Fatigue, Malaise. Denies: Fever Pulmonary: Reports: Cough, Sputum. Denies: Shortness of Breath, Pleuritic Chest Pain Gastrointestinal: Denies: Abdominal Pain, Constipation, Decreased Appetite Musculoskeletal: Denies: Neck Pain, Shoulder Pain, Arm Pain Skin: Denies: Cyanosis, Jaundice, Mottled Neurological: Denies: Confusion, Dizziness, Headache, Numbness - Patient Data Vitals - Most Recent: Last Vital Signs Temp 35.9 C L 06/09/21 12:18 Pulse 69 06/09/21 12:18 Resp 22 H 06/09/21 12:18 BP 104/45 L 06/09/21 12:18 Pulse Ox 94 L 06/09/21 12:18 Weight - Most Recent: 73.5 kg I&O - Last 24 Hours: Intake & Output 06/08/21 06/09/21 06/09/21 22:59 06:59 14:59 Intake Total 1220 600 Output Total 680 Balance 1220 -80 Lab Results Last 24 Hours: Laboratory Results - last 24 hr 06/09/21 06/09/21 Range/Units 05:00 05:00 WBC 9.41 (4.0-11.0) K/uL RBC 4.97 (4.50-5.90) M/uL Hgb 16.2 (13.0-17.0) g/dL Hct 46.4 (38.0-50.0) % MCV 93.4 (80.0-98.0) fL MCH 32.6 H (27.0-32.0) pg MCHC 34.9 (31.0-37.0) g/dL RDW Std Deviation 47.1 (28.0-62.0) fl RDW Coeff of Kellie 14 (11.0-15.0) % Plt Count 228 (150-400) K/uL MPV 10.30 (7.40-12.00) fL Neut % (Auto) 80.9 H (48.0-80.0) % Lymph % (Auto) 7.8 L (16.0-40.0) % [place] % (Auto) 11.1 (0.0-15.0) % Eos % (Auto) 0.1 (0.0-7.0) % Baso % (Auto) 0.1 (0.0-1.5) % Neut # (Auto) 7.6 H (1.4-5.7) K/uL Lymph # (Auto) 0.7 (0.6-2.4) K/uL [place] # (Auto) 1.0 H (0.0-0.8) K/uL Eos # (Auto) 0.0 (0.0-0.7) K/uL Baso # (Auto) 0.0 (0.0-0.1) K/uL Nucleated RBC % 0.0 /100WBC Nucleated RBCs # 0 K/uL Sodium 140 (136-148) mmol/L Potassium 4.2 (3.5-5.1) mmol/L Chloride 100 (98-107) mmol/L Carbon Dioxide 29.8 (21.0-32.0) mmol/L BUN 22 H (7.0-18.0) mg/dL Creatinine 0.8 (0.8-1.3) mg/dL Est Cr Clr Drug Dosing 76.88 mL/min Estimated GFR (MDRD) > 60.0 ml/min Glucose 100 (74-106) mg/dL Calcium 8.2 L (8.5-10.1) mg/dL Total Bilirubin 0.5 (0.2-1.0) mg/dL AST 38 H (15-37) IU/L ALT 39 (14-63) IU/L Alkaline Phosphatase 40 L (46-116) U/L Total Protein 6.5 (6.4-8.2) g/dL Albumin 2.7 L (3.4-5.0) g/dL Globulin 3.8 (2.6-4.0) g/dL Albumin/Globulin Ratio 0.7 L (0.9-1.6) Med Orders - Current: Current Medications Acetaminophen (Acetaminophen 325 Mg Tab) 650 mg PO Q4H PRN PRN Reason: Pain (Mild 1-3)/fever Last Admin: 06/09/21 08:24 Dose: 650 mg Documented by: Albuterol/Ipratropium (Albuterol/Ipratropium 4 Gm Inhalation [place]) 0 gm INH QID [facility] Last Admin: 06/09/21 12:20 Dose: 1 puff Documented by: Dexamethasone (Dexamethasone 4 Mg Tab) 6 mg PO DAILY [facility] Last Admin: 06/09/21 08:20 Dose: 6 mg Documented by: Enoxaparin Sodium (Enoxaparin 40 Mg/0.4 Ml Syringe) 40 mg SUBCUT Q24H [facility] Last Admin: 06/08/21 16:33 Dose: 40 mg Documented by: Guaifenesin/Codeine Phosphate (Codeine/Guaifenesin 10-100 Mg/5 Ml Syrup 5 Ml Cup) 5 ml PO Q4H PRN PRN Reason: Cough Last Admin: 06/09/21 04:34 Dose: 5 ml Documented by: Remdesivir 100 mg/ Sodium (Chloride) 100 mls @ 100 mls/hr IV Q24H [facility] Stop: 06/11/21 17:59 Last Admin: 06/08/21 16:34 Dose: 100 mls/hr Documented by: Pantoprazole Sodium 40 mg/ (Sodium Chloride) 10 mls @ 300 mls/hr IV Q24H [facility] Last Admin: 06/09/21 08:22 Dose: 300 mls/hr Documented by: Ondansetron HCl (Ondansetron 4 Mg/2 Ml Sdv) 4 mg IVPUSH Q4H PRN PRN Reason: Nausea/Vomiting Discontinued Medications Dexamethasone (Dexamethasone 10 Mg/Ml Sdv) 6 mg IVPUSH ONETIME ONE Stop: 06/07/21 12:35 Last Admin: 06/07/21 13:05 Dose: 6 mg Documented by: Dexamethasone (Dexamethasone 4 Mg Tab) 5 mg PO DAILY [facility] Remdesivir 200 mg/ Sodium (Chloride) 250 mls @ 250 mls/hr IV ONETIME ONE Stop: 06/07/21 17:59 Last Admin: 06/07/21 18:15 Dose: 250 mls/hr Documented by: Iopamidol (Iopamidol 755 Mg/Ml 500 Ml Multipack Bottle) 100 ml IVPUSH ONETIME STA Stop: 06/07/21 13:55 Last Admin: 06/07/21 13:55 Dose: 100 ml Documented by: - Exam Quality Assessment: Supplemental Oxygen General: Alert, Oriented Neck: Supple Lungs: Decreased Breath Sounds, Crackles, Rales Cardiovascular: Regular Rate, Regular Rhythm GI/Abdominal Exam: Normal Bowel Sounds, Soft, Non-Tender Extremities: Normal Inspection, Normal Range of Motion - Patient Data Lab Results Last 24 hrs: Laboratory Results - last 24 hr 06/09/21 06/09/21 Range/Units 05:00 05:00 WBC 9.41 (4.0-11.0) K/uL RBC 4.97 (4.50-5.90) M/uL Hgb 16.2 (13.0-17.0) g/dL Hct 46.4 (38.0-50.0) % MCV 93.4 (80.0-98.0) fL MCH 32.6 H (27.0-32.0) pg MCHC 34.9 (31.0-37.0) g/dL RDW Std Deviation 47.1 (28.0-62.0) fl RDW Coeff of Kellie 14 (11.0-15.0) % Plt Count 228 (150-400) K/uL MPV 10.30 (7.40-12.00) fL Neut % (Auto) 80.9 H (48.0-80.0) % Lymph % (Auto) 7.8 L (16.0-40.0) % [place] % (Auto) 11.1 (0.0-15.0) % Eos % (Auto) 0.1 (0.0-7.0) % Baso % (Auto) 0.1 (0.0-1.5) % Neut # (Auto) 7.6 H (1.4-5.7) K/uL Lymph # (Auto) 0.7 (0.6-2.4) K/uL [place] # (Auto) 1.0 H (0.0-0.8) K/uL Eos # (Auto) 0.0 (0.0-0.7) K/uL Baso # (Auto) 0.0 (0.0-0.1) K/uL Nucleated RBC % 0.0 /100WBC Nucleated RBCs # 0 K/uL Sodium 140 (136-148) mmol/L Potassium 4.2 (3.5-5.1) mmol/L Chloride 100 (98-107) mmol/L Carbon Dioxide 29.8 (21.0-32.0) mmol/L BUN 22 H (7.0-18.0) mg/dL Creatinine 0.8 (0.8-1.3) mg/dL Est Cr Clr Drug Dosing 76.88 mL/min Estimated GFR (MDRD) > 60.0 ml/min Glucose 100 (74-106) mg/dL Calcium 8.2 L (8.5-10.1) mg/dL Total Bilirubin 0.5 (0.2-1.0) mg/dL AST 38 H (15-37) IU/L ALT 39 (14-63) IU/L Alkaline Phosphatase 40 L (46-116) U/L Total Protein 6.5 (6.4-8.2) g/dL Albumin 2.7 L (3.4-5.0) g/dL Globulin 3.8 (2.6-4.0) g/dL Albumin/Globulin Ratio 0.7 L (0.9-1.6) Result Diagrams: 06/09/21 05:00 06/09/21 05:00 Sepsis Event Note - Evaluation Sepsis Screening Result: No Definite Risk - Focused Exam Vital Signs: Vital Signs Temp Pulse Resp BP Pulse Ox Pulse Ox 06/09/21 12:18 35.9 C L 69 22 H 104/45 L 94 L 06/09/21 08:15 37.2 C 81 23 H 109/64 93 L 06/09/21 07:00 92 L 06/09/21 05:00 92 L 06/09/21 04:00 36.8 C 80 25 H 117/68 90 L - Problem List & Annotations (1) Hypoxia SNOMED Code(s): 885856506 Code(s): R09.02 - HYPOXEMIA Status: Acute Current Visit: Yes (2) COVID-19 virus infection SNOMED Code(s): 432753340 Code(s): U07.1 - COVID-19 Status: Acute Current Visit: Yes (3) Syncope SNOMED Code(s): 960881563 Code(s): R55 - SYNCOPE AND COLLAPSE Status: Acute Current Visit: No - Problem List Review Problem List Initiated/Reviewed/Updated: Yes - My Orders Last 24 Hours: My Active Orders 06/08/21 17:00 Remdesivir 100 mg Sodium Chloride 0.9% [Normal Saline] 100 ml IV Q24H 06/09/21 11:17 Resuscitation Status Routine - Plan Plan:: Patient is a 66-year-old male admitted for acute hypoxic respiratory failure secondary to Covid pneumonia Today needing slightly more oxygen than yesterday cont patient on IV remdesivir, oral Decadron cont patient on Lovenox for DVT prophylaxis cont patient on scheduled Combivent Cough syrup as needed Incentive spirometry IV Zofran for nausea IV PPI daily for GI prophylaxis Check CMP daily monitor LFTs closely Wean off oxygen as able
[2021-06-09] MEDS: Enoxaparin 40 MG/0.4 ML Syringe SUBCUT SCH (16:49)
[2021-06-09] MEDS: REMDESIVIR 100 MG in Sodium Chloride 0.9% 100 ML IV SCH (17:01)
[2021-06-10] MEDS: Codeine/guaiFENesin 10-100 MG/5 ML Syrup 5 ML Cup PO PRN ×3 (03:25→17:21)
[2021-06-10] MEDS: Albuterol/Ipratropium 4 GM Inhalation Spray INH SCH ×4 (05:06→23:51)
[2021-06-10 07:03] LABS: BLOOD UREA NITROGEN,BUN 21 mg/dL (7.0-18.0); CARBON DIOXIDE,CO2 32.8 mmol/L (21.0-32.0); CHLORIDE,CL 101 mmol/L (98-107); GLUCOSE RANDOM 99 mg/dL (74-106); POTASSIUM,K 3.9 mmol/L (3.5-5.1); SODIUM,NA 140 mmol/L (136-148)
[2021-06-10] MEDS: Dexamethasone 4 MG Tab PO SCH (08:46)
[2021-06-10] MEDS: Pantoprazole 40 MG in Sodium Chloride 0.9% 10 ML IV SCH (08:47)
[2021-06-10] MEDS: Acetaminophen 325 MG Tab PO PRN ×2 (08:49→23:48)
--- NOTE | 2021-06-10 13:20 | PCM.PN ---
- General Info Date of Service: 06/10/21 - Review of Systems Systems Review Comment:: feeling better, reports cough, no fevers, no new complaints. - Patient Data Vitals - Most Recent: Last Vital Signs Temp 36.4 C 06/10/21 13:00 Pulse 68 06/10/21 13:00 Resp 16 06/10/21 13:00 BP 102/56 L 06/10/21 13:00 Pulse Ox 97 06/10/21 13:00 Weight - Most Recent: 73.5 kg I&O - Last 24 Hours: Intake & Output 06/09/21 06/10/21 06/10/21 22:59 06:59 14:59 Intake Total 920 500 Output Total 425 200 325 Balance 495 300 -325 Lab Results Last 24 Hours: Laboratory Results - last 24 hr 06/10/21 06/10/21 Range/Units 05:35 05:35 WBC 9.72 (4.0-11.0) K/uL RBC 4.71 (4.50-5.90) M/uL Hgb 15.0 (13.0-17.0) g/dL Hct 43.7 (38.0-50.0) % MCV 92.8 (80.0-98.0) fL MCH 31.8 (27.0-32.0) pg MCHC 34.3 (31.0-37.0) g/dL RDW Std Deviation 46.1 (28.0-62.0) fl RDW Coeff of Kellie 14 (11.0-15.0) % Plt Count 265 (150-400) K/uL MPV 9.90 (7.40-12.00) fL Neut % (Auto) 75.8 (48.0-80.0) % Lymph % (Auto) 10.5 L (16.0-40.0) % [place] % (Auto) 13.3 (0.0-15.0) % Eos % (Auto) 0.3 (0.0-7.0) % Baso % (Auto) 0.1 (0.0-1.5) % Neut # (Auto) 7.4 H (1.4-5.7) K/uL Lymph # (Auto) 1.0 (0.6-2.4) K/uL [place] # (Auto) 1.3 H (0.0-0.8) K/uL Eos # (Auto) 0.0 (0.0-0.7) K/uL Baso # (Auto) 0.0 (0.0-0.1) K/uL Nucleated RBC % 0.0 /100WBC Nucleated RBCs # 0 K/uL Sodium 140 (136-148) mmol/L Potassium 3.9 (3.5-5.1) mmol/L Chloride 101 (98-107) mmol/L Carbon Dioxide 32.8 H (21.0-32.0) mmol/L BUN 21 H (7.0-18.0) mg/dL Creatinine 0.9 (0.8-1.3) mg/dL Est Cr Clr Drug Dosing 68.33 mL/min Estimated GFR (MDRD) > 60.0 ml/min Glucose 99 (74-106) mg/dL Calcium 7.8 L (8.5-10.1) mg/dL Total Bilirubin 0.6 (0.2-1.0) mg/dL AST 47 H (15-37) IU/L ALT 65 H (14-63) IU/L Alkaline Phosphatase 41 L (46-116) U/L Total Protein 6.0 L (6.4-8.2) g/dL Albumin 2.4 L (3.4-5.0) g/dL Globulin 3.6 (2.6-4.0) g/dL Albumin/Globulin Ratio 0.7 L (0.9-1.6) Med Orders - Current: Current Medications Acetaminophen (Acetaminophen 325 Mg Tab) 650 mg PO Q4H PRN PRN Reason: Pain (Mild 1-3)/fever Last Admin: 06/10/21 08:49 Dose: 650 mg Documented by: Albuterol/Ipratropium (Albuterol/Ipratropium 4 Gm Inhalation [place]) 0 gm INH QID [facility] Last Admin: 06/10/21 11:43 Dose: 1 puff Documented by: Dexamethasone (Dexamethasone 4 Mg Tab) 6 mg PO DAILY [facility] Last Admin: 06/10/21 08:46 Dose: 6 mg Documented by: Enoxaparin Sodium (Enoxaparin 40 Mg/0.4 Ml Syringe) 40 mg SUBCUT Q24H [facility] Last Admin: 06/09/21 16:49 Dose: 40 mg Documented by: Guaifenesin/Codeine Phosphate (Codeine/Guaifenesin 10-100 Mg/5 Ml Syrup 5 Ml Cup) 5 ml PO Q4H PRN PRN Reason: Cough Last Admin: 06/10/21 08:56 Dose: 5 ml Documented by: Remdesivir 100 mg/ Sodium (Chloride) 100 mls @ 100 mls/hr IV Q24H [facility] Stop: 06/11/21 17:59 Last Admin: 06/09/21 17:01 Dose: 100 mls/hr Documented by: Pantoprazole Sodium 40 mg/ (Sodium Chloride) 10 mls @ 300 mls/hr IV Q24H [facility] Last Admin: 06/10/21 08:47 Dose: 300 mls/hr Documented by: Ondansetron HCl (Ondansetron 4 Mg/2 Ml Sdv) 4 mg IVPUSH Q4H PRN PRN Reason: Nausea/Vomiting Discontinued Medications Dexamethasone (Dexamethasone 10 Mg/Ml Sdv) 6 mg IVPUSH ONETIME ONE Stop: 06/07/21 12:35 Last Admin: 06/07/21 13:05 Dose: 6 mg Documented by: Dexamethasone (Dexamethasone 4 Mg Tab) 5 mg PO DAILY [facility] Remdesivir 200 mg/ Sodium (Chloride) 250 mls @ 250 mls/hr IV ONETIME ONE Stop: 06/07/21 17:59 Last Admin: 06/07/21 18:15 Dose: 250 mls/hr Documented by: Iopamidol (Iopamidol 755 Mg/Ml 500 Ml Multipack Bottle) 100 ml IVPUSH ONETIME STA Stop: 06/07/21 13:55 Last Admin: 06/07/21 13:55 Dose: 100 ml Documented by: - Exam General: Alert, Oriented Neck: Supple Lungs: Clear to Auscultation, Normal Respiratory Effort Cardiovascular: Regular Rate, Regular Rhythm GI/Abdominal Exam: Normal Bowel Sounds, Soft, Non-Tender Extremities: Non-Tender, No Pedal Edema Skin: Warm, Dry, Intact Neurological: No New Focal Deficit - Patient Data Lab Results Last 24 hrs: Laboratory Results - last 24 hr 06/10/21 06/10/21 Range/Units 05:35 05:35 WBC 9.72 (4.0-11.0) K/uL RBC 4.71 (4.50-5.90) M/uL Hgb 15.0 (13.0-17.0) g/dL Hct 43.7 (38.0-50.0) % MCV 92.8 (80.0-98.0) fL MCH 31.8 (27.0-32.0) pg MCHC 34.3 (31.0-37.0) g/dL RDW Std Deviation 46.1 (28.0-62.0) fl RDW Coeff of Kellie 14 (11.0-15.0) % Plt Count 265 (150-400) K/uL MPV 9.90 (7.40-12.00) fL Neut % (Auto) 75.8 (48.0-80.0) % Lymph % (Auto) 10.5 L (16.0-40.0) % Alfalfa % (Auto) 13.3 (0.0-15.0) % Eos % (Auto) 0.3 (0.0-7.0) % Baso % (Auto) 0.1 (0.0-1.5) % Neut # (Auto) 7.4 H (1.4-5.7) K/uL Lymph # (Auto) 1.0 (0.6-2.4) K/uL Alfalfa # (Auto) 1.3 H (0.0-0.8) K/uL Eos # (Auto) 0.0 (0.0-0.7) K/uL Baso # (Auto) 0.0 (0.0-0.1) K/uL Nucleated RBC % 0.0 /100WBC Nucleated RBCs # 0 K/uL Sodium 140 (136-148) mmol/L Potassium 3.9 (3.5-5.1) mmol/L Chloride 101 (98-107) mmol/L Carbon Dioxide 32.8 H (21.0-32.0) mmol/L BUN 21 H (7.0-18.0) mg/dL Creatinine 0.9 (0.8-1.3) mg/dL Est Cr Clr Drug Dosing 68.33 mL/min Estimated GFR (MDRD) > 60.0 ml/min Glucose 99 (74-106) mg/dL Calcium 7.8 L (8.5-10.1) mg/dL Total Bilirubin 0.6 (0.2-1.0) mg/dL AST 47 H (15-37) IU/L ALT 65 H (14-63) IU/L Alkaline Phosphatase 41 L (46-116) U/L Total Protein 6.0 L (6.4-8.2) g/dL Albumin 2.4 L (3.4-5.0) g/dL Globulin 3.6 (2.6-4.0) g/dL Albumin/Globulin Ratio 0.7 L (0.9-1.6) Result Diagrams: 06/10/21 05:35 06/10/21 05:35 Sepsis Event Note - Evaluation Sepsis Screening Result: No Definite Risk - Focused Exam Vital Signs: Vital Signs Temp Pulse Resp BP Pulse Ox 06/10/21 13:00 36.4 C 68 16 102/56 L 97 06/10/21 09:00 36.9 C 71 16 108/69 94 L 06/10/21 05:00 36.6 C 66 18 120/70 87 L - Problem List Review Problem List Initiated/Reviewed/Updated: Yes - Plan Plan:: Patient is a 66-year-old male admitted for acute hypoxic respiratory failure secondary to Covid pneumonia Hypoxic respiratory failure: on 5 liters NC COVID: cont patient on IV remdesivir, oral Decadron Lovenox for DVT prophylaxis
[2021-06-10] MEDS: Enoxaparin 40 MG/0.4 ML Syringe SUBCUT SCH (17:11)
[2021-06-10] MEDS: REMDESIVIR 100 MG in Sodium Chloride 0.9% 100 ML IV SCH (17:12)
[2021-06-11] MEDS: Albuterol/Ipratropium 4 GM Inhalation Spray INH SCH ×4 (05:51→23:53)
[2021-06-11 06:57] LABS: BLOOD UREA NITROGEN,BUN 21 mg/dL (7.0-18.0); CARBON DIOXIDE,CO2 31.4 mmol/L (21.0-32.0); CHLORIDE,CL 104 mmol/L (98-107); GLUCOSE RANDOM 95 mg/dL (74-106); POTASSIUM,K 4.4 mmol/L (3.5-5.1); SODIUM,NA 141 mmol/L (136-148)
[2021-06-11] MEDS: Pantoprazole 40 MG in Sodium Chloride 0.9% 10 ML IV SCH (09:13)
[2021-06-11] MEDS: Codeine/guaiFENesin 10-100 MG/5 ML Syrup 5 ML Cup PO PRN ×3 (09:14→23:53)
[2021-06-11] MEDS: Dexamethasone 4 MG Tab PO SCH (09:14)
--- NOTE | 2021-06-11 14:52 | PCM.PN ---
- General Info Date of Service: 06/11/21 - Review of Systems Systems Review Comment:: more short of breath earlier this morning but is improving - Patient Data Vitals - Most Recent: Last Vital Signs Temp 36.3 C 06/11/21 09:00 Pulse 80 06/11/21 09:00 Resp 18 06/11/21 09:00 BP 102/59 L 06/11/21 09:00 Pulse Ox 85 L 06/11/21 09:00 Weight - Most Recent: 73.5 kg I&O - Last 24 Hours: Intake & Output 06/10/21 06/11/21 06/11/21 22:59 06:59 14:59 Intake Total 425 Output Total 575 500 Balance -150 -500 Lab Results Last 24 Hours: Laboratory Results - last 24 hr 06/11/21 06/11/21 Range/Units 05:40 05:40 WBC 11.56 H (4.0-11.0) K/uL RBC 4.55 (4.50-5.90) M/uL Hgb 14.4 (13.0-17.0) g/dL Hct 42.6 (38.0-50.0) % MCV 93.6 (80.0-98.0) fL MCH 31.6 (27.0-32.0) pg MCHC 33.8 (31.0-37.0) g/dL RDW Std Deviation 46.7 (28.0-62.0) fl RDW Coeff of Kellie 14 (11.0-15.0) % Plt Count 282 (150-400) K/uL MPV 9.80 (7.40-12.00) fL Neut % (Auto) 77.0 (48.0-80.0) % Lymph % (Auto) 11.0 L (16.0-40.0) % [place] % (Auto) 11.2 (0.0-15.0) % Eos % (Auto) 0.6 (0.0-7.0) % Baso % (Auto) 0.2 (0.0-1.5) % Neut # (Auto) 8.9 H (1.4-5.7) K/uL Lymph # (Auto) 1.3 (0.6-2.4) K/uL [place] # (Auto) 1.3 H (0.0-0.8) K/uL Eos # (Auto) 0.1 (0.0-0.7) K/uL Baso # (Auto) 0.0 (0.0-0.1) K/uL Nucleated RBC % 0.0 /100WBC Nucleated RBCs # 0 K/uL Sodium 141 (136-148) mmol/L Potassium 4.4 (3.5-5.1) mmol/L Chloride 104 (98-107) mmol/L Carbon Dioxide 31.4 (21.0-32.0) mmol/L BUN 21 H (7.0-18.0) mg/dL Creatinine 0.8 (0.8-1.3) mg/dL Est Cr Clr Drug Dosing 76.88 mL/min Estimated GFR (MDRD) > 60.0 ml/min Glucose 95 (74-106) mg/dL Calcium 7.9 L (8.5-10.1) mg/dL Total Bilirubin 0.5 (0.2-1.0) mg/dL AST 33 (15-37) IU/L ALT 58 (14-63) IU/L Alkaline Phosphatase 47 (46-116) U/L Total Protein 5.7 L (6.4-8.2) g/dL Albumin 2.4 L (3.4-5.0) g/dL Globulin 3.3 (2.6-4.0) g/dL Albumin/Globulin Ratio 0.7 L (0.9-1.6) Med Orders - Current: Current Medications Acetaminophen (Acetaminophen 325 Mg Tab) 650 mg PO Q4H PRN PRN Reason: Pain (Mild 1-3)/fever Last Admin: 06/10/21 23:48 Dose: 650 mg Documented by: Albuterol/Ipratropium (Albuterol/Ipratropium 4 Gm Inhalation [place]) 0 gm INH QID [facility] Last Admin: 06/11/21 11:16 Dose: 1 puff Documented by: Dexamethasone (Dexamethasone 4 Mg Tab) 6 mg PO DAILY [facility] Last Admin: 06/11/21 09:14 Dose: 6 mg Documented by: Enoxaparin Sodium (Enoxaparin 40 Mg/0.4 Ml Syringe) 40 mg SUBCUT Q24H [facility] Last Admin: 06/10/21 17:11 Dose: 40 mg Documented by: Guaifenesin/Codeine Phosphate (Codeine/Guaifenesin 10-100 Mg/5 Ml Syrup 5 Ml Cup) 5 ml PO Q4H PRN PRN Reason: Cough Last Admin: 06/11/21 09:14 Dose: 5 ml Documented by: Remdesivir 100 mg/ Sodium (Chloride) 100 mls @ 100 mls/hr IV Q24H JONI Stop: 06/11/21 17:59 Last Admin: 06/10/21 17:12 Dose: 100 mls/hr Documented by: Pantoprazole Sodium 40 mg/ (Sodium Chloride) 10 mls @ 300 mls/hr IV Q24H [facility] Last Admin: 06/11/21 09:13 Dose: 300 mls/hr Documented by: Ondansetron HCl (Ondansetron 4 Mg/2 Ml Sdv) 4 mg IVPUSH Q4H PRN PRN Reason: Nausea/Vomiting Discontinued Medications Dexamethasone (Dexamethasone 10 Mg/Ml Sdv) 6 mg IVPUSH ONETIME ONE Stop: 06/07/21 12:35 Last Admin: 06/07/21 13:05 Dose: 6 mg Documented by: Dexamethasone (Dexamethasone 4 Mg Tab) 5 mg PO DAILY [facility] Remdesivir 200 mg/ Sodium (Chloride) 250 mls @ 250 mls/hr IV ONETIME ONE Stop: 06/07/21 17:59 Last Admin: 06/07/21 18:15 Dose: 250 mls/hr Documented by: Iopamidol (Iopamidol 755 Mg/Ml 500 Ml Multipack Bottle) 100 ml IVPUSH ONETIME STA Stop: 06/07/21 13:55 Last Admin: 06/07/21 13:55 Dose: 100 ml Documented by: - Exam General: Alert, Oriented Neck: Supple Lungs: Normal Respiratory Effort, Rhonchi Cardiovascular: Regular Rate, Regular Rhythm GI/Abdominal Exam: Soft, Non-Tender, No Distention Extremities: Non-Tender, No Pedal Edema Skin: Warm, Dry, Intact Neurological: No New Focal Deficit - Patient Data Lab Results Last 24 hrs: Laboratory Results - last 24 hr 06/11/21 06/11/21 Range/Units 05:40 05:40 WBC 11.56 H (4.0-11.0) K/uL RBC 4.55 (4.50-5.90) M/uL Hgb 14.4 (13.0-17.0) g/dL Hct 42.6 (38.0-50.0) % MCV 93.6 (80.0-98.0) fL MCH 31.6 (27.0-32.0) pg MCHC 33.8 (31.0-37.0) g/dL RDW Std Deviation 46.7 (28.0-62.0) fl RDW Coeff of Kellie 14 (11.0-15.0) % Plt Count 282 (150-400) K/uL MPV 9.80 (7.40-12.00) fL Neut % (Auto) 77.0 (48.0-80.0) % Lymph % (Auto) 11.0 L (16.0-40.0) % [place] % (Auto) 11.2 (0.0-15.0) % Eos % (Auto) 0.6 (0.0-7.0) % Baso % (Auto) 0.2 (0.0-1.5) % Neut # (Auto) 8.9 H (1.4-5.7) K/uL Lymph # (Auto) 1.3 (0.6-2.4) K/uL [place] # (Auto) 1.3 H (0.0-0.8) K/uL Eos # (Auto) 0.1 (0.0-0.7) K/uL Baso # (Auto) 0.0 (0.0-0.1) K/uL Nucleated RBC % 0.0 /100WBC Nucleated RBCs # 0 K/uL Sodium 141 (136-148) mmol/L Potassium 4.4 (3.5-5.1) mmol/L Chloride 104 (98-107) mmol/L Carbon Dioxide 31.4 (21.0-32.0) mmol/L BUN 21 H (7.0-18.0) mg/dL Creatinine 0.8 (0.8-1.3) mg/dL Est Cr Clr Drug Dosing 76.88 mL/min Estimated GFR (MDRD) > 60.0 ml/min Glucose 95 (74-106) mg/dL Calcium 7.9 L (8.5-10.1) mg/dL Total Bilirubin 0.5 (0.2-1.0) mg/dL AST 33 (15-37) IU/L ALT 58 (14-63) IU/L Alkaline Phosphatase 47 (46-116) U/L Total Protein 5.7 L (6.4-8.2) g/dL Albumin 2.4 L (3.4-5.0) g/dL Globulin 3.3 (2.6-4.0) g/dL Albumin/Globulin Ratio 0.7 L (0.9-1.6) Result Diagrams: 06/11/21 05:40 06/11/21 05:40 Sepsis Event Note - Evaluation Sepsis Screening Result: No Definite Risk - Focused Exam Vital Signs: Vital Signs Temp Pulse Resp BP Pulse Ox 06/11/21 09:00 36.3 C 80 18 102/59 L 85 L - Problem List Review Problem List Initiated/Reviewed/Updated: Yes - My Orders Last 24 Hours: My Active Orders 06/12/21 05:11 CBC WITH AUTO DIFF [HEME] AM COMPREHENSIVE METABOLIC PN,CMP [CHEM] AM 06/13/21 05:11 CBC WITH AUTO DIFF [HEME] AM COMPREHENSIVE METABOLIC PN,CMP [CHEM] AM 06/14/21 05:11 CBC WITH AUTO DIFF [HEME] AM COMPREHENSIVE METABOLIC PN,CMP [CHEM] AM - Plan Plan:: Patient is a 66-year-old male admitted for acute hypoxic respiratory failure secondary to Covid pneumonia Hypoxic respiratory failure: on 5 liters [place] COVID: continue remdesivir, and Decadron Lovenox for DVT prophylaxis
[2021-06-11] MEDS: Enoxaparin 40 MG/0.4 ML Syringe SUBCUT SCH (17:44)
[2021-06-11] MEDS: REMDESIVIR 100 MG in Sodium Chloride 0.9% 100 ML IV SCH (17:45)
[2021-06-12] MEDS: Albuterol/Ipratropium 4 GM Inhalation Spray INH SCH ×2 (05:05→11:28)
[2021-06-12] MEDS: Acetaminophen 325 MG Tab PO PRN (05:05)
[2021-06-12 07:29] LABS: BLOOD UREA NITROGEN,BUN 20 mg/dL (7.0-18.0); CARBON DIOXIDE,CO2 28.1 mmol/L (21.0-32.0); CHLORIDE,CL 102 mmol/L (98-107); GLUCOSE RANDOM 108 mg/dL (74-106); SODIUM,NA 138 mmol/L (136-148)
[2021-06-12] MEDS: Dexamethasone 4 MG Tab PO SCH (08:16)
[2021-06-12] MEDS: Pantoprazole 40 MG in Sodium Chloride 0.9% 10 ML IV SCH (08:17)
--- NOTE | 2021-06-12 11:50 | PCM.PN ---
- General Info Date of Service: 06/12/21 - Review of Systems Systems Review Comment:: short of breath when he wakes up in morning but as day goes on feels better - Patient Data Vitals - Most Recent: Last Vital Signs Temp 36.1 C 06/12/21 11:36 Pulse 81 06/12/21 11:36 Resp 22 H 06/12/21 11:36 BP 121/58 L 06/12/21 11:36 Pulse Ox 90 L 06/12/21 11:36 Weight - Most Recent: 73.5 kg I&O - Last 24 Hours: Intake & Output 06/11/21 06/12/21 06/12/21 22:59 06:59 14:59 Intake Total 1220 Output Total 1475 250 Balance -255 -250 Lab Results Last 24 Hours: Laboratory Results - last 24 hr 06/12/21 06/12/21 Range/Units 06:18 06:18 WBC 11.92 H (4.0-11.0) K/uL RBC 4.42 L (4.50-5.90) M/uL Hgb 14.1 (13.0-17.0) g/dL Hct 40.9 (38.0-50.0) % MCV 92.5 (80.0-98.0) fL MCH 31.9 (27.0-32.0) pg MCHC 34.5 (31.0-37.0) g/dL RDW Std Deviation 45.6 (28.0-62.0) fl RDW Coeff of Kellie 13 (11.0-15.0) % Plt Count 284 (150-400) K/uL MPV 9.60 (7.40-12.00) fL Neut % (Auto) 79.9 (48.0-80.0) % Lymph % (Auto) 7.7 L (16.0-40.0) % [place] % (Auto) 11.5 (0.0-15.0) % Eos % (Auto) 0.8 (0.0-7.0) % Baso % (Auto) 0.1 (0.0-1.5) % Neut # (Auto) 9.5 H (1.4-5.7) K/uL Lymph # (Auto) 0.9 (0.6-2.4) K/uL [place] # (Auto) 1.4 H (0.0-0.8) K/uL Eos # (Auto) 0.1 (0.0-0.7) K/uL Baso # (Auto) 0.0 (0.0-0.1) K/uL Nucleated RBC % 0.0 /100WBC Nucleated RBCs # 0 K/uL Sodium 138 (136-148) mmol/L Potassium 4.0 (3.5-5.1) mmol/L Chloride 102 (98-107) mmol/L Carbon Dioxide 28.1 (21.0-32.0) mmol/L BUN 20 H (7.0-18.0) mg/dL Creatinine 0.9 (0.8-1.3) mg/dL Est Cr Clr Drug Dosing 68.33 mL/min Estimated GFR (MDRD) > 60.0 ml/min Glucose 108 H (74-106) mg/dL Calcium 8.1 L (8.5-10.1) mg/dL Total Bilirubin 0.6 (0.2-1.0) mg/dL AST 30 (15-37) IU/L ALT 46 (14-63) IU/L Alkaline Phosphatase 45 L (46-116) U/L Total Protein 5.4 L (6.4-8.2) g/dL Albumin 2.2 L (3.4-5.0) g/dL Globulin 3.2 (2.6-4.0) g/dL Albumin/Globulin Ratio 0.7 L (0.9-1.6) Med Orders - Current: Current Medications Acetaminophen (Acetaminophen 325 Mg Tab) 650 mg PO Q4H PRN PRN Reason: Pain (Mild 1-3)/fever Last Admin: 06/12/21 05:05 Dose: 650 mg Documented by: Albuterol/Ipratropium (Albuterol/Ipratropium 4 Gm Inhalation [place]) 0 gm INH QID [facility] Last Admin: 06/12/21 11:28 Dose: 1 puff Documented by: Dexamethasone (Dexamethasone 4 Mg Tab) 6 mg PO DAILY [facility] Last Admin: 06/12/21 08:16 Dose: 6 mg Documented by: Enoxaparin Sodium (Enoxaparin 40 Mg/0.4 Ml Syringe) 40 mg SUBCUT Q24H [facility] Last Admin: 06/11/21 17:44 Dose: 40 mg Documented by: Guaifenesin/Codeine Phosphate (Codeine/Guaifenesin 10-100 Mg/5 Ml Syrup 5 Ml Cup) 5 ml PO Q4H PRN PRN Reason: Cough Last Admin: 06/11/21 23:53 Dose: 5 ml Documented by: Pantoprazole Sodium 40 mg/ (Sodium Chloride) 10 mls @ 300 mls/hr IV Q24H [facility] Last Admin: 06/12/21 08:17 Dose: 300 mls/hr Documented by: Ondansetron HCl (Ondansetron 4 Mg/2 Ml Sdv) 4 mg IVPUSH Q4H PRN PRN Reason: Nausea/Vomiting Discontinued Medications Dexamethasone (Dexamethasone 10 Mg/Ml Sdv) 6 mg IVPUSH ONETIME ONE Stop: 06/07/21 12:35 Last Admin: 06/07/21 13:05 Dose: 6 mg Documented by: Dexamethasone (Dexamethasone 4 Mg Tab) 5 mg PO DAILY [facility] Remdesivir 200 mg/ Sodium (Chloride) 250 mls @ 250 mls/hr IV ONETIME ONE Stop: 06/07/21 17:59 Last Admin: 06/07/21 18:15 Dose: 250 mls/hr Documented by: Remdesivir 100 mg/ Sodium (Chloride) 100 mls @ 100 mls/hr IV Q24H [facility] Stop: 06/11/21 17:59 Last Admin: 06/11/21 17:45 Dose: 100 mls/hr Documented by: Iopamidol (Iopamidol 755 Mg/Ml 500 Ml Multipack Bottle) 100 ml IVPUSH ONETIME STA Stop: 06/07/21 13:55 Last Admin: 06/07/21 13:55 Dose: 100 ml Documented by: - Exam General: Alert, Oriented Neck: Supple Lungs: Clear to Auscultation, Normal Respiratory Effort Cardiovascular: Regular Rate, Regular Rhythm GI/Abdominal Exam: Soft, Non-Tender, No Distention Extremities: Non-Tender, No Pedal Edema Skin: Warm, Dry, Intact - Patient Data Lab Results Last 24 hrs: Laboratory Results - last 24 hr 06/12/21 06/12/21 Range/Units 06:18 06:18 WBC 11.92 H (4.0-11.0) K/uL RBC 4.42 L (4.50-5.90) M/uL Hgb 14.1 (13.0-17.0) g/dL Hct 40.9 (38.0-50.0) % MCV 92.5 (80.0-98.0) fL MCH 31.9 (27.0-32.0) pg MCHC 34.5 (31.0-37.0) g/dL RDW Std Deviation 45.6 (28.0-62.0) fl RDW Coeff of Kellie 13 (11.0-15.0) % Plt Count 284 (150-400) K/uL MPV 9.60 (7.40-12.00) fL Neut % (Auto) 79.9 (48.0-80.0) % Lymph % (Auto) 7.7 L (16.0-40.0) % [place] % (Auto) 11.5 (0.0-15.0) % Eos % (Auto) 0.8 (0.0-7.0) % Baso % (Auto) 0.1 (0.0-1.5) % Neut # (Auto) 9.5 H (1.4-5.7) K/uL Lymph # (Auto) 0.9 (0.6-2.4) K/uL [place] # (Auto) 1.4 H (0.0-0.8) K/uL Eos # (Auto) 0.1 (0.0-0.7) K/uL Baso # (Auto) 0.0 (0.0-0.1) K/uL Nucleated RBC % 0.0 /100WBC Nucleated RBCs # 0 K/uL Sodium 138 (136-148) mmol/L Potassium 4.0 (3.5-5.1) mmol/L Chloride 102 (98-107) mmol/L Carbon Dioxide 28.1 (21.0-32.0) mmol/L BUN 20 H (7.0-18.0) mg/dL Creatinine 0.9 (0.8-1.3) mg/dL Est Cr Clr Drug Dosing 68.33 mL/min Estimated GFR (MDRD) > 60.0 ml/min Glucose 108 H (74-106) mg/dL Calcium 8.1 L (8.5-10.1) mg/dL Total Bilirubin 0.6 (0.2-1.0) mg/dL AST 30 (15-37) IU/L ALT 46 (14-63) IU/L Alkaline Phosphatase 45 L (46-116) U/L Total Protein 5.4 L (6.4-8.2) g/dL Albumin 2.2 L (3.4-5.0) g/dL Globulin 3.2 (2.6-4.0) g/dL Albumin/Globulin Ratio 0.7 L (0.9-1.6) Result Diagrams: 06/12/21 06:18 06/12/21 06:18 Sepsis Event Note - Evaluation Sepsis Screening Result: No Definite Risk - Focused Exam Vital Signs: Vital Signs Temp Pulse Resp BP Pulse Ox 06/12/21 11:36 36.1 C 81 22 H 121/58 L 90 L 06/12/21 08:30 91 L 06/12/21 08:00 33.4 C L 68 22 H 97/50 L 85 L 06/12/21 04:00 36.9 C 73 18 124/74 94 L 06/12/21 00:04 36.9 C 69 16 121/83 96 - Problem List & Annotations (1) COVID-19 virus infection SNOMED Code(s): 239835748 Code(s): U07.1 - COVID-19 Status: Acute Current Visit: Yes (2) Hypoxia SNOMED Code(s): 459654992 Code(s): R09.02 - HYPOXEMIA Status: Acute Current Visit: Yes - Problem List Review Problem List Initiated/Reviewed/Updated: Yes - My Orders Last 24 Hours: My Active Orders 06/13/21 05:11 CBC WITH AUTO DIFF [HEME] AM COMPREHENSIVE METABOLIC PN,CMP [CHEM] AM 06/14/21 05:11 CBC WITH AUTO DIFF [HEME] AM COMPREHENSIVE METABOLIC PN,CMP [CHEM] AM - Plan Plan:: Patient is a 66-year-old male admitted for acute hypoxic respiratory failure secondary to Covid pneumonia Hypoxic respiratory failure: on 6 liters [place] COVID: finished remdesivir course, continue dexamethasone Lovenox for DVT prophylaxis
[2021-06-12] MEDS: Enoxaparin 40 MG/0.4 ML Syringe SUBCUT SCH (17:30)
[2021-06-13] MEDS: Albuterol/Ipratropium 4 GM Inhalation Spray INH SCH ×5 (00:29→17:21)
[2021-06-13 07:28] LABS: BLOOD UREA NITROGEN,BUN 20 mg/dL (7.0-18.0); CARBON DIOXIDE,CO2 28.9 mmol/L (21.0-32.0); CHLORIDE,CL 102 mmol/L (98-107); GLUCOSE RANDOM 112 mg/dL (74-106); POTASSIUM,K 3.9 mmol/L (3.5-5.1); SODIUM,NA 140 mmol/L (136-148)
[2021-06-13] MEDS: Pantoprazole 40 MG in Sodium Chloride 0.9% 10 ML IV SCH (08:29)
[2021-06-13] MEDS: Dexamethasone 4 MG Tab PO SCH (08:30)
[2021-06-13] MEDS: Acetaminophen 325 MG Tab PO PRN ×2 (08:51→19:08)
[2021-06-13] MEDS: Enoxaparin 40 MG/0.4 ML Syringe SUBCUT SCH (17:21)
--- NOTE | 2021-06-13 20:01 | PCM.PN ---
- General Info Date of Service: 06/13/21 Subjective Update: Patient states no concerns overnight. Still states mild shortness of breath with ambulation. Denies fever, chills, nausea, vomiting, diarrhea. - Review of Systems General: Denies: Fever, Chills Pulmonary: Denies: Cough Cardiovascular: Reports: Dyspnea on Exertion. Denies: Chest Pain, Edema Gastrointestinal: Denies: Abdominal Pain, Decreased Appetite, Diarrhea, Nausea, Vomiting Psychiatric: Denies: Confusion - Patient Data Vitals - Most Recent: Last Vital Signs Temp 98.1 F 06/13/21 16:00 Pulse 74 06/13/21 16:00 Resp 20 06/13/21 16:00 BP 103/69 06/13/21 16:00 Pulse Ox 92 L 06/13/21 16:00 Weight - Most Recent: 162 lb 0.636 oz I&O - Last 24 Hours: Intake & Output 06/13/21 06/13/21 06/13/21 06:59 14:59 22:59 Intake Total 1080 Output Total 975 Balance 105 Lab Results Last 24 Hours: Laboratory Results - last 24 hr 06/13/21 06/13/21 Range/Units 06:25 06:25 WBC 14.61 H (4.0-11.0) K/uL RBC 4.50 (4.50-5.90) M/uL Hgb 14.3 (13.0-17.0) g/dL Hct 41.7 (38.0-50.0) % MCV 92.7 (80.0-98.0) fL MCH 31.8 (27.0-32.0) pg MCHC 34.3 (31.0-37.0) g/dL RDW Std Deviation 45.9 (28.0-62.0) fl RDW Coeff of Kellie 14 (11.0-15.0) % Plt Count 343 (150-400) K/uL MPV 9.60 (7.40-12.00) fL Neut % (Auto) 79.5 (48.0-80.0) % Lymph % (Auto) 9.0 L (16.0-40.0) % [place] % (Auto) 10.4 (0.0-15.0) % Eos % (Auto) 1.0 (0.0-7.0) % Baso % (Auto) 0.1 (0.0-1.5) % Neut # (Auto) 11.6 H (1.4-5.7) K/uL Lymph # (Auto) 1.3 (0.6-2.4) K/uL [place] # (Auto) 1.5 H (0.0-0.8) K/uL Eos # (Auto) 0.2 (0.0-0.7) K/uL Baso # (Auto) 0.0 (0.0-0.1) K/uL Nucleated RBC % 0.0 /100WBC Nucleated RBCs # 0 K/uL Sodium 140 (136-148) mmol/L Potassium 3.9 (3.5-5.1) mmol/L Chloride 102 (98-107) mmol/L Carbon Dioxide 28.9 (21.0-32.0) mmol/L BUN 20 H (7.0-18.0) mg/dL Creatinine 0.8 (0.8-1.3) mg/dL Est Cr Clr Drug Dosing 76.88 mL/min Estimated GFR (MDRD) > 60.0 ml/min Glucose 112 H (74-106) mg/dL Calcium 8.0 L (8.5-10.1) mg/dL Total Bilirubin 0.6 (0.2-1.0) mg/dL AST 29 (15-37) IU/L ALT 48 (14-63) IU/L Alkaline Phosphatase 51 (46-116) U/L Total Protein 5.8 L (6.4-8.2) g/dL Albumin 2.3 L (3.4-5.0) g/dL Globulin 3.5 (2.6-4.0) g/dL Albumin/Globulin Ratio 0.7 L (0.9-1.6) Med Orders - Current: Current Medications Acetaminophen (Acetaminophen 325 Mg Tab) 650 mg PO Q4H PRN PRN Reason: Pain (Mild 1-3)/fever Last Admin: 06/13/21 19:08 Dose: 650 mg Documented by: Albuterol/Ipratropium (Albuterol/Ipratropium 4 Gm Inhalation [place]) 0 gm INH QID [facility] Last Admin: 06/13/21 17:21 Dose: 1 puff Documented by: Dexamethasone (Dexamethasone 4 Mg Tab) 6 mg PO DAILY [facility] Last Admin: 06/13/21 08:30 Dose: 6 mg Documented by: Enoxaparin Sodium (Enoxaparin 40 Mg/0.4 Ml Syringe) 40 mg SUBCUT Q24H [facility] Last Admin: 06/13/21 17:21 Dose: 40 mg Documented by: Guaifenesin/Codeine Phosphate (Codeine/Guaifenesin 10-100 Mg/5 Ml Syrup 5 Ml Cup) 5 ml PO Q4H PRN PRN Reason: Cough Last Admin: 06/11/21 23:53 Dose: 5 ml Documented by: Pantoprazole Sodium 40 mg/ (Sodium Chloride) 10 mls @ 300 mls/hr IV Q24H [facility] Last Admin: 06/13/21 08:29 Dose: 300 mls/hr Documented by: Ondansetron HCl (Ondansetron 4 Mg/2 Ml Sdv) 4 mg IVPUSH Q4H PRN PRN Reason: Nausea/Vomiting Discontinued Medications Dexamethasone (Dexamethasone 10 Mg/Ml Sdv) 6 mg IVPUSH ONETIME ONE Stop: 06/07/21 12:35 Last Admin: 06/07/21 13:05 Dose: 6 mg Documented by: Dexamethasone (Dexamethasone 4 Mg Tab) 5 mg PO DAILY [facility] Remdesivir 200 mg/ Sodium (Chloride) 250 mls @ 250 mls/hr IV ONETIME ONE Stop: 06/07/21 17:59 Last Admin: 06/07/21 18:15 Dose: 250 mls/hr Documented by: Remdesivir 100 mg/ Sodium (Chloride) 100 mls @ 100 mls/hr IV Q24H JONI Stop: 06/11/21 17:59 Last Admin: 06/11/21 17:45 Dose: 100 mls/hr Documented by: Iopamidol (Iopamidol 755 Mg/Ml 500 Ml Multipack Bottle) 100 ml IVPUSH ONETIME STA Stop: 06/07/21 13:55 Last Admin: 06/07/21 13:55 Dose: 100 ml Documented by: - Exam Quality Assessment: Supplemental Oxygen General: Alert, Oriented Lungs: Normal Respiratory Effort, Crackles Cardiovascular: Regular Rate, Regular Rhythm GI/Abdominal Exam: Soft, Non-Tender, No Distention Extremities: No Pedal Edema Psy/Mental Status: Alert - Patient Data Lab Results Last 24 hrs: Laboratory Results - last 24 hr 06/13/21 06/13/21 Range/Units 06:25 06:25 WBC 14.61 H (4.0-11.0) K/uL RBC 4.50 (4.50-5.90) M/uL Hgb 14.3 (13.0-17.0) g/dL Hct 41.7 (38.0-50.0) % MCV 92.7 (80.0-98.0) fL MCH 31.8 (27.0-32.0) pg MCHC 34.3 (31.0-37.0) g/dL RDW Std Deviation 45.9 (28.0-62.0) fl RDW Coeff of Kellie 14 (11.0-15.0) % Plt Count 343 (150-400) K/uL MPV 9.60 (7.40-12.00) fL Neut % (Auto) 79.5 (48.0-80.0) % Lymph % (Auto) 9.0 L (16.0-40.0) % [place] % (Auto) 10.4 (0.0-15.0) % Eos % (Auto) 1.0 (0.0-7.0) % Baso % (Auto) 0.1 (0.0-1.5) % Neut # (Auto) 11.6 H (1.4-5.7) K/uL Lymph # (Auto) 1.3 (0.6-2.4) K/uL [place] # (Auto) 1.5 H (0.0-0.8) K/uL Eos # (Auto) 0.2 (0.0-0.7) K/uL Baso # (Auto) 0.0 (0.0-0.1) K/uL Nucleated RBC % 0.0 /100WBC Nucleated RBCs # 0 K/uL Sodium 140 (136-148) mmol/L Potassium 3.9 (3.5-5.1) mmol/L Chloride 102 (98-107) mmol/L Carbon Dioxide 28.9 (21.0-32.0) mmol/L BUN 20 H (7.0-18.0) mg/dL Creatinine 0.8 (0.8-1.3) mg/dL Est Cr Clr Drug Dosing 76.88 mL/min Estimated GFR (MDRD) > 60.0 ml/min Glucose 112 H (74-106) mg/dL Calcium 8.0 L (8.5-10.1) mg/dL Total Bilirubin 0.6 (0.2-1.0) mg/dL AST 29 (15-37) IU/L ALT 48 (14-63) IU/L Alkaline Phosphatase 51 (46-116) U/L Total Protein 5.8 L (6.4-8.2) g/dL Albumin 2.3 L (3.4-5.0) g/dL Globulin 3.5 (2.6-4.0) g/dL Albumin/Globulin Ratio 0.7 L (0.9-1.6) Result Diagrams: 06/13/21 06:25 06/13/21 06:25 Sepsis Event Note - Evaluation Sepsis Screening Result: No Definite Risk - Focused Exam Vital Signs: Vital Signs Temp Temp Pulse Resp BP Pulse Ox 06/13/21 16:00 98.1 F 74 20 103/69 92 L 06/13/21 12:00 97.8 F 82 18 93 L - Problem List & Annotations (1) COVID-19 virus infection SNOMED Code(s): 823675622 Code(s): U07.1 - COVID-19 Status: Acute Current Visit: Yes (2) Hypoxia SNOMED Code(s): 268002986 Code(s): R09.02 - HYPOXEMIA Status: Acute Current Visit: Yes (3) Vertigo SNOMED Code(s): 896046969 Code(s): R42 - DIZZINESS AND GIDDINESS Status: Acute Current Visit: No - Problem List Review Problem List Initiated/Reviewed/Updated: Yes - Plan Plan:: Patient is a 66-year-old male admitted for acute hypoxic respiratory failure secondary to Covid pneumonia Hypoxic respiratory failure: on 8 liters NC COVID: finished remdesivir course, continue dexamethasone Lovenox for DVT prophylaxis
[2021-06-14] MEDS: Albuterol/Ipratropium 4 GM Inhalation Spray INH SCH ×4 (00:09→17:29)
[2021-06-14 07:20] LABS: BLOOD UREA NITROGEN,BUN 19 mg/dL (7.0-18.0); CARBON DIOXIDE,CO2 30.7 mmol/L (21.0-32.0); CHLORIDE,CL 103 mmol/L (98-107); GLUCOSE RANDOM 111 mg/dL (74-106); POTASSIUM,K 4.1 mmol/L (3.5-5.1); SODIUM,NA 141 mmol/L (136-148)
[2021-06-14] MEDS: Pantoprazole 40 MG in Sodium Chloride 0.9% 10 ML IV SCH (09:03)
[2021-06-14] MEDS: Acetaminophen 325 MG Tab PO PRN (09:04)
[2021-06-14] MEDS: Dexamethasone 4 MG Tab PO SCH (09:05)
--- NOTE | 2021-06-14 10:57 | CR ---
Indication: Hypoxia Comparison: Single-view chest June 03, 2021 Technique: Single AP view chest Findings: There is hyperinflation and chronic interstitial change. There is interval development of extensive interstitial, ground-glass and airspace opacities in the peripheral bilateral hemithoraces likely representing multifocal infiltrates. There is no pneumothorax or pleural effusion. The cardiac silhouette is mildly prominent. The bony thorax is grossly intact. Impression: Interval development of extensive interstitial, ground-glass and airspace opacities of the bilateral hemithoraces likely representing developing multifocal infiltrates. Recommend correlation with history of sweet virus status. Dictated by Ryan Elias MD @ 06/14/2021 10:56:00 AM (Electronically Signed)
--- NOTE | 2021-06-14 11:09 | PCM.PN ---
- General Info Date of Service: 06/14/21 Subjective Update: Patient states increased shortness of breath with ambulation, mild cough. Denies fever, chills, nausea, vomiting. - Review of Systems General: Reports: Fatigue. Denies: Fever, Chills Pulmonary: Reports: Shortness of Breath, Cough Cardiovascular: Reports: Dyspnea on Exertion. Denies: Chest Pain, Orthopnea, Edema Gastrointestinal: Denies: Abdominal Pain, Decreased Appetite, Diarrhea, Nausea, Vomiting Neurological: Denies: Confusion, Dizziness, Headache Psychiatric: Denies: Confusion - Patient Data Vitals - Most Recent: Last Vital Signs Temp 98.1 F 06/14/21 09:00 Pulse 65 06/14/21 09:00 Resp 16 06/14/21 09:00 BP 107/68 06/14/21 09:00 Pulse Ox 92 L 06/14/21 09:00 Weight - Most Recent: 162 lb 0.636 oz I&O - Last 24 Hours: Intake & Output 06/13/21 06/14/21 06/14/21 22:59 06:59 14:59 Intake Total 1080 500 Output Total 975 300 Balance 105 200 Lab Results Last 24 Hours: Laboratory Results - last 24 hr 06/14/21 06/14/21 Range/Units 06:00 06:00 WBC 14.22 H (4.0-11.0) K/uL RBC 4.44 L (4.50-5.90) M/uL Hgb 14.2 (13.0-17.0) g/dL Hct 41.3 (38.0-50.0) % MCV 93.0 (80.0-98.0) fL MCH 32.0 (27.0-32.0) pg MCHC 34.4 (31.0-37.0) g/dL RDW Std Deviation 46.3 (28.0-62.0) fl RDW Coeff of Kellie 14 (11.0-15.0) % Plt Count 364 (150-400) K/uL MPV 9.50 (7.40-12.00) fL Neut % (Auto) 81.0 H (48.0-80.0) % Lymph % (Auto) 9.1 L (16.0-40.0) % [place] % (Auto) 8.9 (0.0-15.0) % Eos % (Auto) 0.8 (0.0-7.0) % Baso % (Auto) 0.2 (0.0-1.5) % Neut # (Auto) 11.5 H (1.4-5.7) K/uL Lymph # (Auto) 1.3 (0.6-2.4) K/uL [place] # (Auto) 1.3 H (0.0-0.8) K/uL Eos # (Auto) 0.1 (0.0-0.7) K/uL Baso # (Auto) 0.0 (0.0-0.1) K/uL Nucleated RBC % 0.0 /100WBC Nucleated RBCs # 0 K/uL Sodium 141 (136-148) mmol/L Potassium 4.1 (3.5-5.1) mmol/L Chloride 103 (98-107) mmol/L Carbon Dioxide 30.7 (21.0-32.0) mmol/L BUN 19 H (7.0-18.0) mg/dL Creatinine 0.9 (0.8-1.3) mg/dL Est Cr Clr Drug Dosing 68.33 mL/min Estimated GFR (MDRD) > 60.0 ml/min Glucose 111 H (74-106) mg/dL Calcium 7.9 L (8.5-10.1) mg/dL Total Bilirubin 0.6 (0.2-1.0) mg/dL AST 23 (15-37) IU/L ALT 55 (14-63) IU/L Alkaline Phosphatase 53 (46-116) U/L Total Protein 5.8 L (6.4-8.2) g/dL Albumin 2.2 L (3.4-5.0) g/dL Globulin 3.6 (2.6-4.0) g/dL Albumin/Globulin Ratio 0.6 L (0.9-1.6) Med Orders - Current: Current Medications Acetaminophen (Acetaminophen 325 Mg Tab) 650 mg PO Q4H PRN PRN Reason: Pain (Mild 1-3)/fever Last Admin: 06/14/21 09:04 Dose: 650 mg Documented by: Albuterol/Ipratropium (Albuterol/Ipratropium 4 Gm Inhalation [place]) 0 gm INH QID JONI Last Admin: 06/14/21 05:34 Dose: 1 puff Documented by: Dexamethasone (Dexamethasone 4 Mg Tab) 6 mg PO DAILY [facility] Last Admin: 06/14/21 09:05 Dose: 6 mg Documented by: Enoxaparin Sodium (Enoxaparin 40 Mg/0.4 Ml Syringe) 40 mg SUBCUT Q24H [facility] Last Admin: 06/13/21 17:21 Dose: 40 mg Documented by: Guaifenesin/Codeine Phosphate (Codeine/Guaifenesin 10-100 Mg/5 Ml Syrup 5 Ml Cup) 5 ml PO Q4H PRN PRN Reason: Cough Last Admin: 06/11/21 23:53 Dose: 5 ml Documented by: Pantoprazole Sodium 40 mg/ (Sodium Chloride) 10 mls @ 300 mls/hr IV Q24H [facility] Last Admin: 06/14/21 09:03 Dose: 300 mls/hr Documented by: Ondansetron HCl (Ondansetron 4 Mg/2 Ml Sdv) 4 mg IVPUSH Q4H PRN PRN Reason: Nausea/Vomiting Discontinued Medications Dexamethasone (Dexamethasone 10 Mg/Ml Sdv) 6 mg IVPUSH ONETIME ONE Stop: 06/07/21 12:35 Last Admin: 06/07/21 13:05 Dose: 6 mg Documented by: Dexamethasone (Dexamethasone 4 Mg Tab) 5 mg PO DAILY [facility] Remdesivir 200 mg/ Sodium (Chloride) 250 mls @ 250 mls/hr IV ONETIME ONE Stop: 06/07/21 17:59 Last Admin: 06/07/21 18:15 Dose: 250 mls/hr Documented by: Remdesivir 100 mg/ Sodium (Chloride) 100 mls @ 100 mls/hr IV Q24H [facility] Stop: 06/11/21 17:59 Last Admin: 06/11/21 17:45 Dose: 100 mls/hr Documented by: Iopamidol (Iopamidol 755 Mg/Ml 500 Ml Multipack Bottle) 100 ml IVPUSH ONETIME STA Stop: 06/07/21 13:55 Last Admin: 06/07/21 13:55 Dose: 100 ml Documented by: - Exam Quality Assessment: Supplemental Oxygen General: Alert, Oriented Lungs: Normal Respiratory Effort (with HF), Crackles Cardiovascular: Regular Rate, Regular Rhythm GI/Abdominal Exam: Soft, Non-Tender, No Distention Extremities: No Pedal Edema - Patient Data Lab Results Last 24 hrs: Laboratory Results - last 24 hr 06/14/21 06/14/21 Range/Units 06:00 06:00 WBC 14.22 H (4.0-11.0) K/uL RBC 4.44 L (4.50-5.90) M/uL Hgb 14.2 (13.0-17.0) g/dL Hct 41.3 (38.0-50.0) % MCV 93.0 (80.0-98.0) fL MCH 32.0 (27.0-32.0) pg MCHC 34.4 (31.0-37.0) g/dL RDW Std Deviation 46.3 (28.0-62.0) fl RDW Coeff of Kellie 14 (11.0-15.0) % Plt Count 364 (150-400) K/uL MPV 9.50 (7.40-12.00) fL Neut % (Auto) 81.0 H (48.0-80.0) % Lymph % (Auto) 9.1 L (16.0-40.0) % [place] % (Auto) 8.9 (0.0-15.0) % Eos % (Auto) 0.8 (0.0-7.0) % Baso % (Auto) 0.2 (0.0-1.5) % Neut # (Auto) 11.5 H (1.4-5.7) K/uL Lymph # (Auto) 1.3 (0.6-2.4) K/uL [place] # (Auto) 1.3 H (0.0-0.8) K/uL Eos # (Auto) 0.1 (0.0-0.7) K/uL Baso # (Auto) 0.0 (0.0-0.1) K/uL Nucleated RBC % 0.0 /100WBC Nucleated RBCs # 0 K/uL Sodium 141 (136-148) mmol/L Potassium 4.1 (3.5-5.1) mmol/L Chloride 103 (98-107) mmol/L Carbon Dioxide 30.7 (21.0-32.0) mmol/L BUN 19 H (7.0-18.0) mg/dL Creatinine 0.9 (0.8-1.3) mg/dL Est Cr Clr Drug Dosing 68.33 mL/min Estimated GFR (MDRD) > 60.0 ml/min Glucose 111 H (74-106) mg/dL Calcium 7.9 L (8.5-10.1) mg/dL Total Bilirubin 0.6 (0.2-1.0) mg/dL AST 23 (15-37) IU/L ALT 55 (14-63) IU/L Alkaline Phosphatase 53 (46-116) U/L Total Protein 5.8 L (6.4-8.2) g/dL Albumin 2.2 L (3.4-5.0) g/dL Globulin 3.6 (2.6-4.0) g/dL Albumin/Globulin Ratio 0.6 L (0.9-1.6) Result Diagrams: 06/14/21 06:00 06/14/21 06:00 Sepsis Event Note - Evaluation Sepsis Screening Result: No Definite Risk - Focused Exam Vital Signs: Vital Signs Temp Pulse Resp BP Pulse Ox 06/14/21 09:00 98.1 F 65 16 107/68 92 L 06/14/21 06:37 90 L 06/14/21 03:30 97.8 F 59 L 18 122/68 95 06/14/21 00:06 97.1 F 55 L 18 106/65 95 - Problem List & Annotations (1) COVID-19 virus infection SNOMED Code(s): 511979410 Code(s): U07.1 - COVID-19 Status: Acute Current Visit: Yes (2) Hypoxia SNOMED Code(s): 165947565 Code(s): R09.02 - HYPOXEMIA Status: Acute Current Visit: Yes (3) Vertigo SNOMED Code(s): 833514165 Code(s): R42 - DIZZINESS AND GIDDINESS Status: Acute Current Visit: No - Problem List Review Problem List Initiated/Reviewed/Updated: Yes - Plan Plan:: Acute hypoxic respiratory failure secondary to Covid pneumonia Currently on 10 liters NC, increased from yesterday Finished remdesivir course, continue dexamethasone, Combivent Lovenox 40mg Q24hr, encourage incentive spirometry, encourage prone positioning Chest x-ray ordered as patient's white blood cell count increased to 14.2, oxygen demand has increased to 10 L. Chest x-ray impression, development of extensive interstitial ground glass and airspace opacities with bilateral hemiparesis likely representing developing multifocal infiltrates, no pneumothorax or pleural effusion. Procalcitonin ordered, Will start levofloxacin 750mg q24.
[2021-06-14] MEDS: Levofloxacin/Dextrose 5%-Water 750 MG in Premix Bag 1 BAG IV SCH (13:34)
[2021-06-14] MEDS: Enoxaparin 40 MG/0.4 ML Syringe SUBCUT SCH (16:00)
[2021-06-15] MEDS: Albuterol/Ipratropium 4 GM Inhalation Spray INH SCH ×5 (00:02→23:48)
[2021-06-15] MEDS: Acetaminophen 325 MG Tab PO PRN ×2 (00:09→10:15)
[2021-06-15 07:03] LABS: BLOOD UREA NITROGEN,BUN 18 mg/dL (7.0-18.0); CARBON DIOXIDE,CO2 30.4 mmol/L (21.0-32.0); CHLORIDE,CL 104 mmol/L (98-107); GLUCOSE RANDOM 101 mg/dL (74-106); POTASSIUM,K 4.3 mmol/L (3.5-5.1); SODIUM,NA 140 mmol/L (136-148)
[2021-06-15] MEDS: Dexamethasone 4 MG Tab PO SCH (09:49)
[2021-06-15] MEDS: Pantoprazole 40 MG in Sodium Chloride 0.9% 10 ML IV SCH (09:49)
[2021-06-15] MEDS: Levofloxacin/Dextrose 5%-Water 750 MG in Premix Bag 1 BAG IV SCH (12:08)
--- NOTE | 2021-06-15 15:42 | PCM.PN ---
- General Info Date of Service: 06/15/21 Admission Dx/Problem (Free Text): Admission Diagnosis/Problem Admission Diagnosis/Problem Hypoxia Subjective Update: Patient states he feels slightly better today, oxygen requirement has decreased from 10 L to 5 L. Functional Status: Reports: Tolerating Diet, Ambulating, Urinating - Review of Systems General: Reports: Weakness. Denies: Fever, Malaise Pulmonary: Reports: Shortness of Breath, Cough, Sputum. Denies: Pleuritic Chest Pain Cardiovascular: Reports: Dyspnea on Exertion. Denies: Chest Pain, Palpitations Gastrointestinal: Denies: Abdominal Pain, Constipation, Decreased Appetite Genitourinary: Denies: Dysuria, Frequency, Burning, Pain Musculoskeletal: Denies: Neck Pain, Shoulder Pain, Arm Pain Skin: Denies: Cyanosis, Jaundice, Mottled, Pallor - Patient Data Vitals - Most Recent: Last Vital Signs Temp 36.5 C 06/15/21 15:31 Pulse 70 06/15/21 15:31 Resp 14 06/15/21 15:36 BP 105/66 06/15/21 15:31 Pulse Ox 97 06/15/21 15:36 Weight - Most Recent: 73.5 kg I&O - Last 24 Hours: Intake & Output 06/15/21 06/15/21 06/15/21 06:59 14:59 22:59 Intake Total 700 Output Total 820 Balance -120 Lab Results Last 24 Hours: Laboratory Results - last 24 hr 06/15/21 06/15/21 Range/Units 06:10 06:10 WBC 11.97 H (4.0-11.0) K/uL RBC 4.34 L (4.50-5.90) M/uL Hgb 13.7 (13.0-17.0) g/dL Hct 40.2 (38.0-50.0) % MCV 92.6 (80.0-98.0) fL MCH 31.6 (27.0-32.0) pg MCHC 34.1 (31.0-37.0) g/dL RDW Std Deviation 46.3 (28.0-62.0) fl RDW Coeff of Kellie 14 (11.0-15.0) % Plt Count 317 (150-400) K/uL MPV 9.40 (7.40-12.00) fL Neut % (Auto) 77.7 (48.0-80.0) % Lymph % (Auto) 11.9 L (16.0-40.0) % [place] % (Auto) 9.5 (0.0-15.0) % Eos % (Auto) 0.8 (0.0-7.0) % Baso % (Auto) 0.1 (0.0-1.5) % Neut # (Auto) 9.3 H (1.4-5.7) K/uL Lymph # (Auto) 1.4 (0.6-2.4) K/uL [place] # (Auto) 1.1 H (0.0-0.8) K/uL Eos # (Auto) 0.1 (0.0-0.7) K/uL Baso # (Auto) 0.0 (0.0-0.1) K/uL Nucleated RBC % 0.0 /100WBC Nucleated RBCs # 0 K/uL Sodium 140 (136-148) mmol/L Potassium 4.3 (3.5-5.1) mmol/L Chloride 104 (98-107) mmol/L Carbon Dioxide 30.4 (21.0-32.0) mmol/L BUN 18 (7.0-18.0) mg/dL Creatinine 0.7 L (0.8-1.3) mg/dL Est Cr Clr Drug Dosing 87.86 mL/min Estimated GFR (MDRD) > 60.0 ml/min Glucose 101 (74-106) mg/dL Calcium 8.2 L (8.5-10.1) mg/dL Med Orders - Current: Current Medications Acetaminophen (Acetaminophen 325 Mg Tab) 650 mg PO Q4H PRN PRN Reason: Pain (Mild 1-3)/fever Last Admin: 06/15/21 10:15 Dose: 650 mg Documented by: Albuterol/Ipratropium (Albuterol/Ipratropium 4 Gm Inhalation [place]) 0 gm INH QID [facility] Last Admin: 06/15/21 11:57 Dose: 1 puff Documented by: Dexamethasone (Dexamethasone 4 Mg Tab) 6 mg PO DAILY [facility] Last Admin: 06/15/21 09:49 Dose: 6 mg Documented by: Enoxaparin Sodium (Enoxaparin 40 Mg/0.4 Ml Syringe) 40 mg SUBCUT Q24H [facility] Last Admin: 06/14/21 16:00 Dose: 40 mg Documented by: Guaifenesin/Codeine Phosphate (Codeine/Guaifenesin 10-100 Mg/5 Ml Syrup 5 Ml Cup) 5 ml PO Q4H PRN PRN Reason: Cough Last Admin: 06/11/21 23:53 Dose: 5 ml Documented by: Pantoprazole Sodium 40 mg/ (Sodium Chloride) 10 mls @ 300 mls/hr IV Q24H [facility] Last Admin: 06/15/21 09:49 Dose: 300 mls/hr Documented by: Levofloxacin/Dextrose 750 mg/ (Premix) 150 mls @ 100 mls/hr IV Q24H [facility] Last Admin: 06/15/21 12:08 Dose: 100 mls/hr Documented by: Ondansetron HCl (Ondansetron 4 Mg/2 Ml Sdv) 4 mg IVPUSH Q4H PRN PRN Reason: Nausea/Vomiting Discontinued Medications Dexamethasone (Dexamethasone 10 Mg/Ml Sdv) 6 mg IVPUSH ONETIME ONE Stop: 06/07/21 12:35 Last Admin: 06/07/21 13:05 Dose: 6 mg Documented by: Dexamethasone (Dexamethasone 4 Mg Tab) 5 mg PO DAILY [facility] Remdesivir 200 mg/ Sodium (Chloride) 250 mls @ 250 mls/hr IV ONETIME ONE Stop: 06/07/21 17:59 Last Admin: 06/07/21 18:15 Dose: 250 mls/hr Documented by: Remdesivir 100 mg/ Sodium (Chloride) 100 mls @ 100 mls/hr IV Q24H [facility] Stop: 06/11/21 17:59 Last Admin: 06/11/21 17:45 Dose: 100 mls/hr Documented by: Iopamidol (Iopamidol 755 Mg/Ml 500 Ml Multipack Bottle) 100 ml IVPUSH ONETIME STA Stop: 06/07/21 13:55 Last Admin: 06/07/21 13:55 Dose: 100 ml Documented by: - Exam Quality Assessment: Supplemental Oxygen General: Alert, Oriented Neck: Supple Lungs: Normal Respiratory Effort, Decreased Breath Sounds, Crackles, Rales Cardiovascular: Regular Rate, Regular Rhythm GI/Abdominal Exam: Normal Bowel Sounds, Soft - Patient Data Lab Results Last 24 hrs: Laboratory Results - last 24 hr 06/15/21 06/15/21 Range/Units 06:10 06:10 WBC 11.97 H (4.0-11.0) K/uL RBC 4.34 L (4.50-5.90) M/uL Hgb 13.7 (13.0-17.0) g/dL Hct 40.2 (38.0-50.0) % MCV 92.6 (80.0-98.0) fL MCH 31.6 (27.0-32.0) pg MCHC 34.1 (31.0-37.0) g/dL RDW Std Deviation 46.3 (28.0-62.0) fl RDW Coeff of Kellie 14 (11.0-15.0) % Plt Count 317 (150-400) K/uL MPV 9.40 (7.40-12.00) fL Neut % (Auto) 77.7 (48.0-80.0) % Lymph % (Auto) 11.9 L (16.0-40.0) % [place] % (Auto) 9.5 (0.0-15.0) % Eos % (Auto) 0.8 (0.0-7.0) % Baso % (Auto) 0.1 (0.0-1.5) % Neut # (Auto) 9.3 H (1.4-5.7) K/uL Lymph # (Auto) 1.4 (0.6-2.4) K/uL [place] # (Auto) 1.1 H (0.0-0.8) K/uL Eos # (Auto) 0.1 (0.0-0.7) K/uL Baso # (Auto) 0.0 (0.0-0.1) K/uL Nucleated RBC % 0.0 /100WBC Nucleated RBCs # 0 K/uL Sodium 140 (136-148) mmol/L Potassium 4.3 (3.5-5.1) mmol/L Chloride 104 (98-107) mmol/L Carbon Dioxide 30.4 (21.0-32.0) mmol/L BUN 18 (7.0-18.0) mg/dL Creatinine 0.7 L (0.8-1.3) mg/dL Est Cr Clr Drug Dosing 87.86 mL/min Estimated GFR (MDRD) > 60.0 ml/min Glucose 101 (74-106) mg/dL Calcium 8.2 L (8.5-10.1) mg/dL Result Diagrams: 06/15/21 06:10 06/15/21 06:10 Sepsis Event Note - Evaluation Sepsis Screening Result: No Definite Risk - Focused Exam Vital Signs: Vital Signs Temp Temp Pulse Resp BP BP Pulse Ox 06/15/21 15:36 14 97 06/15/21 15:31 36.5 C 70 14 105/66 97 06/15/21 14:45 16 98 06/15/21 12:00 36.3 C 77 18 101/65 91 L 06/15/21 10:00 36.2 C 76 18 95/51 L 91 L 06/15/21 06:30 92 L Pulse Ox 06/15/21 15:36 06/15/21 15:31 06/15/21 14:45 06/15/21 12:00 06/15/21 10:00 06/15/21 06:30 92 L - Problem List & Annotations (1) Hypoxia SNOMED Code(s): 883055136 Code(s): R09.02 - HYPOXEMIA Status: Acute Current Visit: Yes (2) COVID-19 virus infection SNOMED Code(s): 734243913 Code(s): U07.1 - COVID-19 Status: Acute Current Visit: Yes (3) Syncope SNOMED Code(s): 637204103 Code(s): R55 - SYNCOPE AND COLLAPSE Status: Acute Current Visit: No - Problem List Review Problem List Initiated/Reviewed/Updated: Yes - Plan Plan:: Acute hypoxic respiratory failure secondary to Covid pneumonia Currently on 5 liters [place], increased from yesterday Finished remdesivir course, continue dexamethasone, Combivent Lovenox 40mg Q24hr, encourage incentive spirometry, encourage prone positioning Chest x-ray ordered as patient's white blood cell count increased to 14.2, oxygen demand has increased to 10 L. Chest x-ray impression, development of extensive interstitial ground glass and airspace opacities with bilateral hemiparesis likely representing developing multifocal infiltrates, no pneumothorax or pleural effusion. Procalcitonin ordered, cont levofloxacin 750mg q24.
[2021-06-15] MEDS: Enoxaparin 40 MG/0.4 ML Syringe SUBCUT SCH (16:21)
[2021-06-16] MEDS: Albuterol/Ipratropium 4 GM Inhalation Spray INH SCH ×4 (05:56→23:39)
[2021-06-16 07:15] LABS: BLOOD UREA NITROGEN,BUN 16 mg/dL (7.0-18.0); CARBON DIOXIDE,CO2 31.7 mmol/L (21.0-32.0); CHLORIDE,CL 104 mmol/L (98-107); GLUCOSE RANDOM 106 mg/dL (74-106); POTASSIUM,K 4.2 mmol/L (3.5-5.1); SODIUM,NA 141 mmol/L (136-148)
[2021-06-16] MEDS: Pantoprazole 40 MG in Sodium Chloride 0.9% 10 ML IV SCH (08:54)
[2021-06-16] MEDS: Dexamethasone 4 MG Tab PO SCH (08:55)
[2021-06-16] MEDS: Levofloxacin/Dextrose 5%-Water 750 MG in Premix Bag 1 BAG IV SCH (12:13)
[2021-06-16] MEDS: Enoxaparin 40 MG/0.4 ML Syringe SUBCUT SCH (15:48)
--- NOTE | 2021-06-16 17:34 | PCM.PN ---
- General Info Date of Service: 06/16/21 Admission Dx/Problem (Free Text): Admission Diagnosis/Problem Admission Diagnosis/Problem Hypoxia Subjective Update: Patient states he feels slightly better today, resting in his bed comfortably, states that when he wakes up in the morning he feels a little short of breath but then after waking up and walking around his breathing improved a lot Functional Status: Reports: Tolerating Diet, Ambulating, Urinating - Review of Systems General: Reports: Fatigue, Malaise. Denies: Fever, Weakness, Chills, Night Sweats Pulmonary: Reports: Shortness of Breath, Cough, Sputum Cardiovascular: Reports: Dyspnea on Exertion. Denies: Chest Pain, Palpitations, Orthopnea Gastrointestinal: Denies: Abdominal Pain, Constipation, Decreased Appetite, Diarrhea Genitourinary: Denies: Dysuria, Frequency, Burning, Pain Musculoskeletal: Denies: Neck Pain, Shoulder Pain, Arm Pain Skin: Denies: Cyanosis, Jaundice, Mottled Neurological: Denies: Confusion, Dizziness, Headache - Patient Data Vitals - Most Recent: Last Vital Signs Temp 36.4 C 06/16/21 12:23 Pulse 88 06/16/21 16:12 Resp 16 06/16/21 16:12 BP 118/68 06/16/21 16:12 Pulse Ox 94 L 06/16/21 16:12 Weight - Most Recent: 73.5 kg I&O - Last 24 Hours: Intake & Output 06/16/21 06/16/21 06/16/21 06:59 14:59 22:59 Intake Total 720 Output Total 400 Balance 320 Lab Results Last 24 Hours: Laboratory Results - last 24 hr 06/14/21 06/16/21 06/16/21 Range/Units 13:11 06:35 06:35 WBC 10.55 (4.0-11.0) K/uL RBC 4.44 L (4.50-5.90) M/uL Hgb 14.0 (13.0-17.0) g/dL Hct 41.6 (38.0-50.0) % MCV 93.7 (80.0-98.0) fL MCH 31.5 (27.0-32.0) pg MCHC 33.7 (31.0-37.0) g/dL RDW Std Deviation 47.0 (28.0-62.0) fl RDW Coeff of Kellie 14 (11.0-15.0) % Plt Count 331 (150-400) K/uL MPV 9.50 (7.40-12.00) fL Neut % (Auto) 76.2 (48.0-80.0) % Lymph % (Auto) 14.4 L (16.0-40.0) % [place] % (Auto) 8.5 (0.0-15.0) % Eos % (Auto) 0.8 (0.0-7.0) % Baso % (Auto) 0.1 (0.0-1.5) % Neut # (Auto) 8.0 H (1.4-5.7) K/uL Lymph # (Auto) 1.5 (0.6-2.4) K/uL [place] # (Auto) 0.9 H (0.0-0.8) K/uL Eos # (Auto) 0.1 (0.0-0.7) K/uL Baso # (Auto) 0.0 (0.0-0.1) K/uL Nucleated RBC % 0.0 /100WBC Nucleated RBCs # 0 K/uL Sodium 141 (136-148) mmol/L Potassium 4.2 (3.5-5.1) mmol/L Chloride 104 (98-107) mmol/L Carbon Dioxide 31.7 (21.0-32.0) mmol/L BUN 16 (7.0-18.0) mg/dL Creatinine 0.8 (0.8-1.3) mg/dL Est Cr Clr Drug Dosing 76.88 mL/min Estimated GFR (MDRD) > 60.0 ml/min Glucose 106 (74-106) mg/dL Calcium 8.0 L (8.5-10.1) mg/dL Procalcitonin <0.05 ng/mL Med Orders - Current: Current Medications Acetaminophen (Acetaminophen 325 Mg Tab) 650 mg PO Q4H PRN PRN Reason: Pain (Mild 1-3)/fever Last Admin: 06/15/21 10:15 Dose: 650 mg Documented by: Albuterol/Ipratropium (Albuterol/Ipratropium 4 Gm Inhalation [place]) 0 gm INH QID JONI Last Admin: 06/16/21 12:22 Dose: 1 puff Documented by: Dexamethasone (Dexamethasone 4 Mg Tab) 6 mg PO DAILY [facility] Last Admin: 06/16/21 08:55 Dose: 6 mg Documented by: Enoxaparin Sodium (Enoxaparin 40 Mg/0.4 Ml Syringe) 40 mg SUBCUT Q24H [facility] Last Admin: 06/16/21 15:48 Dose: 40 mg Documented by: Guaifenesin/Codeine Phosphate (Codeine/Guaifenesin 10-100 Mg/5 Ml Syrup 5 Ml Cup) 5 ml PO Q4H PRN PRN Reason: Cough Last Admin: 06/11/21 23:53 Dose: 5 ml Documented by: Pantoprazole Sodium 40 mg/ (Sodium Chloride) 10 mls @ 300 mls/hr IV Q24H [facility] Last Admin: 06/16/21 08:54 Dose: 300 mls/hr Documented by: Levofloxacin/Dextrose 750 mg/ (Premix) 150 mls @ 100 mls/hr IV Q24H [facility] Last Admin: 06/16/21 12:13 Dose: 100 mls/hr Documented by: Ondansetron HCl (Ondansetron 4 Mg/2 Ml Sdv) 4 mg IVPUSH Q4H PRN PRN Reason: Nausea/Vomiting Discontinued Medications Dexamethasone (Dexamethasone 10 Mg/Ml Sdv) 6 mg IVPUSH ONETIME ONE Stop: 06/07/21 12:35 Last Admin: 06/07/21 13:05 Dose: 6 mg Documented by: Dexamethasone (Dexamethasone 4 Mg Tab) 5 mg PO DAILY [facility] Remdesivir 200 mg/ Sodium (Chloride) 250 mls @ 250 mls/hr IV ONETIME ONE Stop: 06/07/21 17:59 Last Admin: 06/07/21 18:15 Dose: 250 mls/hr Documented by: Remdesivir 100 mg/ Sodium (Chloride) 100 mls @ 100 mls/hr IV Q24H [facility] Stop: 06/11/21 17:59 Last Admin: 06/11/21 17:45 Dose: 100 mls/hr Documented by: Iopamidol (Iopamidol 755 Mg/Ml 500 Ml Multipack Bottle) 100 ml IVPUSH ONETIME STA Stop: 06/07/21 13:55 Last Admin: 06/07/21 13:55 Dose: 100 ml Documented by: - Exam Quality Assessment: Supplemental Oxygen General: Alert, Oriented, Cooperative, Mild Distress Lungs: Clear to Auscultation, Normal Respiratory Effort Cardiovascular: Regular Rate, Regular Rhythm GI/Abdominal Exam: Normal Bowel Sounds, Soft, Non-Tender Back Exam: Normal Inspection, Full Range of Motion - Patient Data Lab Results Last 24 hrs: Laboratory Results - last 24 hr 06/14/21 06/16/21 06/16/21 Range/Units 13:11 06:35 06:35 WBC 10.55 (4.0-11.0) K/uL RBC 4.44 L (4.50-5.90) M/uL Hgb 14.0 (13.0-17.0) g/dL Hct 41.6 (38.0-50.0) % MCV 93.7 (80.0-98.0) fL MCH 31.5 (27.0-32.0) pg MCHC 33.7 (31.0-37.0) g/dL RDW Std Deviation 47.0 (28.0-62.0) fl RDW Coeff of Kellie 14 (11.0-15.0) % Plt Count 331 (150-400) K/uL MPV 9.50 (7.40-12.00) fL Neut % (Auto) 76.2 (48.0-80.0) % Lymph % (Auto) 14.4 L (16.0-40.0) % [place] % (Auto) 8.5 (0.0-15.0) % Eos % (Auto) 0.8 (0.0-7.0) % Baso % (Auto) 0.1 (0.0-1.5) % Neut # (Auto) 8.0 H (1.4-5.7) K/uL Lymph # (Auto) 1.5 (0.6-2.4) K/uL [place] # (Auto) 0.9 H (0.0-0.8) K/uL Eos # (Auto) 0.1 (0.0-0.7) K/uL Baso # (Auto) 0.0 (0.0-0.1) K/uL Nucleated RBC % 0.0 /100WBC Nucleated RBCs # 0 K/uL Sodium 141 (136-148) mmol/L Potassium 4.2 (3.5-5.1) mmol/L Chloride 104 (98-107) mmol/L Carbon Dioxide 31.7 (21.0-32.0) mmol/L BUN 16 (7.0-18.0) mg/dL Creatinine 0.8 (0.8-1.3) mg/dL Est Cr Clr Drug Dosing 76.88 mL/min Estimated GFR (MDRD) > 60.0 ml/min Glucose 106 (74-106) mg/dL Calcium 8.0 L (8.5-10.1) mg/dL Procalcitonin <0.05 ng/mL Result Diagrams: 06/16/21 06:35 06/16/21 06:35 Sepsis Event Note - Evaluation Sepsis Screening Result: No Definite Risk - Focused Exam Vital Signs: Vital Signs Temp Pulse Resp BP BP Pulse Ox 06/16/21 16:12 88 16 118/68 94 L 06/16/21 12:23 36.4 C 85 16 95/51 L 96 06/16/21 08:56 72 18 111/64 94 L - Problem List & Annotations (1) Hypoxia SNOMED Code(s): 498759373 Code(s): R09.02 - HYPOXEMIA Status: Acute Current Visit: Yes (2) COVID-19 virus infection SNOMED Code(s): 771417754 Code(s): U07.1 - COVID-19 Status: Acute Current Visit: Yes (3) Syncope SNOMED Code(s): 485375790 Code(s): R55 - SYNCOPE AND COLLAPSE Status: Acute Current Visit: No (4) Acute respiratory failure with hypoxia SNOMED Code(s): 35930378, 959742347 Code(s): J96.01 - ACUTE RESPIRATORY FAILURE WITH HYPOXIA Status: Acute Current Visit: Yes - Problem List Review Problem List Initiated/Reviewed/Updated: Yes - Plan Plan:: Acute hypoxic respiratory failure secondary to Covid pneumonia Currently on 4 liters NC, Finished remdesivir course, continue dexamethasone, Combivent Lovenox 40mg Q24hr, encourage incentive spirometry, encourage prone positioning Continue levofloxacin 750 daily Wean off oxygen as tolerated Ambulate as tolerated
[2021-06-17] MEDS: Albuterol/Ipratropium 4 GM Inhalation Spray INH SCH ×4 (06:26→23:31)
[2021-06-17 07:01] LABS: BLOOD UREA NITROGEN,BUN 19 mg/dL (7.0-18.0); CARBON DIOXIDE,CO2 29.4 mmol/L (21.0-32.0); CHLORIDE,CL 104 mmol/L (98-107); GLUCOSE RANDOM 112 mg/dL (74-106); POTASSIUM,K 4.1 mmol/L (3.5-5.1); SODIUM,NA 141 mmol/L (136-148)
[2021-06-17] MEDS: Pantoprazole 40 MG in Sodium Chloride 0.9% 10 ML IV SCH (08:12)
[2021-06-17] MEDS: Dexamethasone 4 MG Tab PO SCH (08:12)
[2021-06-17] MEDS: Levofloxacin/Dextrose 5%-Water 750 MG in Premix Bag 1 BAG IV SCH (11:56)
--- NOTE | 2021-06-17 15:15 | PCM.PN ---
- General Info Date of Service: 06/17/21 Admission Dx/Problem (Free Text): Admission Diagnosis/Problem Admission Diagnosis/Problem Hypoxia Subjective Update: Patient resting in bed comfortably, no acute distress, oxygen requirement steadily improving Functional Status: Reports: Tolerating Diet, Ambulating, Urinating - Review of Systems General: Reports: Fatigue. Denies: Fever, Weakness, Malaise, Chills Pulmonary: Reports: Shortness of Breath, Cough, Sputum. Denies: Pleuritic Chest Pain Cardiovascular: Reports: Dyspnea on Exertion. Denies: Chest Pain, Palpitations Gastrointestinal: Denies: Abdominal Pain, Constipation, Decreased Appetite, Diarrhea Genitourinary: Denies: Dysuria, Frequency, Burning Musculoskeletal: Denies: Neck Pain, Shoulder Pain, Arm Pain Skin: Denies: Cyanosis, Jaundice, Mottled, Pallor - Patient Data Vitals - Most Recent: Last Vital Signs Temp 36.3 C 06/17/21 12:00 Pulse 78 06/17/21 12:00 Resp 16 06/17/21 12:00 BP 97/58 L 06/17/21 12:00 Pulse Ox 90 L 06/17/21 12:00 Weight - Most Recent: 73.5 kg I&O - Last 24 Hours: Intake & Output 06/17/21 06/17/21 06/17/21 06:59 14:59 22:59 Intake Total 800 Output Total 800 Balance 0 Lab Results Last 24 Hours: Laboratory Results - last 24 hr 06/17/21 06/17/21 Range/Units 06:15 06:15 WBC 11.34 H (4.0-11.0) K/uL RBC 4.42 L (4.50-5.90) M/uL Hgb 13.9 (13.0-17.0) g/dL Hct 41.0 (38.0-50.0) % MCV 92.8 (80.0-98.0) fL MCH 31.4 (27.0-32.0) pg MCHC 33.9 (31.0-37.0) g/dL RDW Std Deviation 46.2 (28.0-62.0) fl RDW Coeff of Kellie 14 (11.0-15.0) % Plt Count 303 (150-400) K/uL MPV 9.40 (7.40-12.00) fL Neut % (Auto) 74.5 (48.0-80.0) % Lymph % (Auto) 16.0 (16.0-40.0) % [place] % (Auto) 8.7 (0.0-15.0) % Eos % (Auto) 0.7 (0.0-7.0) % Baso % (Auto) 0.1 (0.0-1.5) % Neut # (Auto) 8.5 H (1.4-5.7) K/uL Lymph # (Auto) 1.8 (0.6-2.4) K/uL [place] # (Auto) 1.0 H (0.0-0.8) K/uL Eos # (Auto) 0.1 (0.0-0.7) K/uL Baso # (Auto) 0.0 (0.0-0.1) K/uL Nucleated RBC % 0.0 /100WBC Nucleated RBCs # 0 K/uL Sodium 141 (136-148) mmol/L Potassium 4.1 (3.5-5.1) mmol/L Chloride 104 (98-107) mmol/L Carbon Dioxide 29.4 (21.0-32.0) mmol/L BUN 19 H (7.0-18.0) mg/dL Creatinine 0.8 (0.8-1.3) mg/dL Est Cr Clr Drug Dosing 76.88 mL/min Estimated GFR (MDRD) > 60.0 ml/min Glucose 112 H (74-106) mg/dL Calcium 8.2 L (8.5-10.1) mg/dL Med Orders - Current: Current Medications Acetaminophen (Acetaminophen 325 Mg Tab) 650 mg PO Q4H PRN PRN Reason: Pain (Mild 1-3)/fever Last Admin: 06/15/21 10:15 Dose: 650 mg Documented by: Albuterol/Ipratropium (Albuterol/Ipratropium 4 Gm Inhalation [place]) 0 gm INH QID [facility] Last Admin: 06/17/21 11:21 Dose: 1 puff Documented by: Enoxaparin Sodium (Enoxaparin 40 Mg/0.4 Ml Syringe) 40 mg SUBCUT Q24H [facility] Last Admin: 06/16/21 15:48 Dose: 40 mg Documented by: Guaifenesin/Codeine Phosphate (Codeine/Guaifenesin 10-100 Mg/5 Ml Syrup 5 Ml Cup) 5 ml PO Q4H PRN PRN Reason: Cough Last Admin: 06/11/21 23:53 Dose: 5 ml Documented by: Pantoprazole Sodium 40 mg/ (Sodium Chloride) 10 mls @ 300 mls/hr IV Q24H [facility] Last Admin: 06/17/21 08:12 Dose: 300 mls/hr Documented by: Levofloxacin/Dextrose 750 mg/ (Premix) 150 mls @ 100 mls/hr IV Q24H [facility] Last Admin: 06/17/21 11:56 Dose: 100 mls/hr Documented by: Ondansetron HCl (Ondansetron 4 Mg/2 Ml Sdv) 4 mg IVPUSH Q4H PRN PRN Reason: Nausea/Vomiting Discontinued Medications Dexamethasone (Dexamethasone 10 Mg/Ml Sdv) 6 mg IVPUSH ONETIME ONE Stop: 06/07/21 12:35 Last Admin: 06/07/21 13:05 Dose: 6 mg Documented by: Dexamethasone (Dexamethasone 4 Mg Tab) 5 mg PO DAILY [facility] Dexamethasone (Dexamethasone 4 Mg Tab) 6 mg PO DAILY [facility] Last Admin: 06/17/21 08:12 Dose: 6 mg Documented by: Remdesivir 200 mg/ Sodium (Chloride) 250 mls @ 250 mls/hr IV ONETIME ONE Stop: 06/07/21 17:59 Last Admin: 06/07/21 18:15 Dose: 250 mls/hr Documented by: Remdesivir 100 mg/ Sodium (Chloride) 100 mls @ 100 mls/hr IV Q24H [facility] Stop: 06/11/21 17:59 Last Admin: 06/11/21 17:45 Dose: 100 mls/hr Documented by: Iopamidol (Iopamidol 755 Mg/Ml 500 Ml Multipack Bottle) 100 ml IVPUSH ONETIME STA Stop: 06/07/21 13:55 Last Admin: 06/07/21 13:55 Dose: 100 ml Documented by: - Exam Quality Assessment: Supplemental Oxygen General: Alert, Oriented Neck: Supple Lungs: Clear to Auscultation, Normal Respiratory Effort Cardiovascular: Regular Rate, Regular Rhythm GI/Abdominal Exam: Normal Bowel Sounds, Soft, Non-Tender - Patient Data Lab Results Last 24 hrs: Laboratory Results - last 24 hr 06/17/21 06/17/21 Range/Units 06:15 06:15 WBC 11.34 H (4.0-11.0) K/uL RBC 4.42 L (4.50-5.90) M/uL Hgb 13.9 (13.0-17.0) g/dL Hct 41.0 (38.0-50.0) % MCV 92.8 (80.0-98.0) fL MCH 31.4 (27.0-32.0) pg MCHC 33.9 (31.0-37.0) g/dL RDW Std Deviation 46.2 (28.0-62.0) fl RDW Coeff of Kellie 14 (11.0-15.0) % Plt Count 303 (150-400) K/uL MPV 9.40 (7.40-12.00) fL Neut % (Auto) 74.5 (48.0-80.0) % Lymph % (Auto) 16.0 (16.0-40.0) % [place] % (Auto) 8.7 (0.0-15.0) % Eos % (Auto) 0.7 (0.0-7.0) % Baso % (Auto) 0.1 (0.0-1.5) % Neut # (Auto) 8.5 H (1.4-5.7) K/uL Lymph # (Auto) 1.8 (0.6-2.4) K/uL [place] # (Auto) 1.0 H (0.0-0.8) K/uL Eos # (Auto) 0.1 (0.0-0.7) K/uL Baso # (Auto) 0.0 (0.0-0.1) K/uL Nucleated RBC % 0.0 /100WBC Nucleated RBCs # 0 K/uL Sodium 141 (136-148) mmol/L Potassium 4.1 (3.5-5.1) mmol/L Chloride 104 (98-107) mmol/L Carbon Dioxide 29.4 (21.0-32.0) mmol/L BUN 19 H (7.0-18.0) mg/dL Creatinine 0.8 (0.8-1.3) mg/dL Est Cr Clr Drug Dosing 76.88 mL/min Estimated GFR (MDRD) > 60.0 ml/min Glucose 112 H (74-106) mg/dL Calcium 8.2 L (8.5-10.1) mg/dL Result Diagrams: 06/17/21 06:15 06/17/21 06:15 Sepsis Event Note - Evaluation Sepsis Screening Result: No Definite Risk - Focused Exam Vital Signs: Vital Signs Temp Pulse Resp BP Pulse Ox 06/17/21 12:00 36.3 C 78 16 97/58 L 90 L 06/17/21 08:00 37.3 C 78 18 125/60 95 06/17/21 03:59 36.4 C 64 19 123/69 95 - Problem List & Annotations (1) Hypoxia SNOMED Code(s): 088575081 Code(s): R09.02 - HYPOXEMIA Status: Acute Current Visit: Yes (2) COVID-19 virus infection SNOMED Code(s): 037607852 Code(s): U07.1 - COVID-19 Status: Acute Current Visit: Yes (3) Syncope SNOMED Code(s): 282863081 Code(s): R55 - SYNCOPE AND COLLAPSE Status: Acute Current Visit: No (4) Acute respiratory failure with hypoxia SNOMED Code(s): 74335240, 999426392 Code(s): J96.01 - ACUTE RESPIRATORY FAILURE WITH HYPOXIA Status: Acute Current Visit: Yes - Problem List Review Problem List Initiated/Reviewed/Updated: Yes - Plan Plan:: Acute hypoxic respiratory failure secondary to Covid pneumonia Currently on 3.5 liters NC, Finished remdesivir course, dexamethasone, Combivent Lovenox 40mg Q24hr, encourage incentive spirometry, encourage prone positioning Continue levofloxacin 750 daily Wean off oxygen as tolerated Ambulate as tolerated
[2021-06-17] MEDS: Enoxaparin 40 MG/0.4 ML Syringe SUBCUT SCH (16:07)
[2021-06-17] MEDS: Acetaminophen 325 MG Tab PO PRN (18:32)
[2021-06-18] MEDS: Albuterol/Ipratropium 4 GM Inhalation Spray INH SCH ×2 (06:01→11:18)
[2021-06-18 06:46] LABS: BLOOD UREA NITROGEN,BUN 17 mg/dL (7.0-18.0); CARBON DIOXIDE,CO2 29.5 mmol/L (21.0-32.0); CHLORIDE,CL 104 mmol/L (98-107); GLUCOSE RANDOM 110 mg/dL (74-106); SODIUM,NA 141 mmol/L (136-148)
[2021-06-18] MEDS: Pantoprazole 40 MG in Sodium Chloride 0.9% 10 ML IV SCH (09:57)
[2021-06-18] MEDS: Levofloxacin/Dextrose 5%-Water 750 MG in Premix Bag 1 BAG IV SCH (11:17)
--- NOTE | 2021-06-18 14:17 | PCM.DCSUM1 ---
Discharge Summary - Hospital Course Free Text/Narrative:: 66-year-old and with a past medical history of hypertension, hyperlipidemia was diagnosed with COVID-19 on 03 June. Patient presented to the ED on 06-07-21 due to dizziness, shortness of breath, cough. Patient was hypoxic on presentation in the ED. Laboratory: CBC is unremarkable. INR is normal. CMP reveals hypochloremia at 97, elevated BUN at 24, hyperglycemia at 131, hypocalcemia at 8.4, hypoalbuminemia at 2.9. Alkaline phosphatase is low at 37. CT angiogram of the chest does not reveal any evidence of pulmonary embolism with moderate widespread groundglass opacities. Patient was admitted to the hospital for acute hypoxic respiratory failure secondary to Covid. Patient is unvaccinated currently. Patient was treated with remdesivir, dexamethasone, IV antibiotics, Lovenox, oxygen support. Patient required maximum of 10 L high flow during admission course. Patient discharged in stable condition to home on 06-18-21 with home oxygen. Patient to use 2 L continuously up to 3 L with ambulation. Patient completed course of dexamethasone and remdesivir, 5 days of levaquin. Patient also prescribed albuterol inhaler as needed. - Discharge Data Discharge Date: 06/18/21 Discharge Disposition: Home, Self-Care 01 Condition: Fair - Referral to Home Health Primary Care Physician: Eulalio Horn MD - Discharge Diagnosis/Problem(s) (1) COVID-19 virus infection SNOMED Code(s): 173391938 ICD Code: U07.1 - COVID-19 Status: Acute (2) Hypoxia SNOMED Code(s): 155906546 ICD Code: R09.02 - HYPOXEMIA Status: Acute (3) Vertigo SNOMED Code(s): 043733310 ICD Code: R42 - DIZZINESS AND GIDDINESS Status: Acute - Patient Instructions Other/Special Instructions: Report dizziness, mild shortness of breath, abdominal pain, fevers to primary care physician. Report to ed if expierencing severe shortness of breath, chest pain - Discharge Plan Prescriptions/Med Rec: Albuterol Sulfate [Albuterol Sulfate HFA] 8.5 gm INH Q4H PRN #1 ea PRN Reason: Shortness Of Breath Home Medications: Home Meds Simvastatin [Zocor] 40 mg PO BEDTIME 08/12/17 [History] hydroCHLOROthiazide [Hydrochlorothiazide] 12.5 mg PO DAILY 08/12/17 [History] Meclizine [Antivert] 25 mg PO TID PRN 06/03/21 [History] amLODIPine [Norvasc] 5 mg PO DAILY 06/13/21 [History] Albuterol Sulfate [Albuterol Sulfate HFA] 8.5 gm INH Q4H PRN #1 ea 06/18/21 [Rx] Multivitamins [Tab-A-Cherri] 1 tab PO DAILY 06/18/21 [History] Oxygen Therapy Mode: Nasal Cannula Oxygen Flow Rate (L/min): 2 Maintain SpO2% greater than: 92 Patient Handouts: Albuterol inhalation powder, Hypoxia, COVID-19, Home Oxygen Use, Adult, Frequently Asked Questions About COVID-19 Vaccination - [facility] (02/20/2021), Infection Prevention in the Home, COVID-19: Quarantine vs. Isolation - [facility] (08/24/2020) Referrals: Eulalio Horn MD [Primary Care Provider] - 06/26/21 1:15 pm - Discharge Summary/Plan Comment DC Time >30 min.: Yes Total # of Minutes for Discharge Time: 35 - General Info Date of Service: 06/18/21 Subjective Update: Patient states mild shortness of breath with ambulation but states that he is comfortable to be discharged with home oxygen. Patient denies fever, chills, nausea, vomiting, headaches, dizziness, chest pain, abdominal pain, diarrhea. - Review of Systems General: Denies: Fever, Chills Pulmonary: Denies: Cough Cardiovascular: Reports: Dyspnea on Exertion. Denies: Chest Pain, Orthopnea, Edema Gastrointestinal: Denies: Abdominal Pain, Decreased Appetite, Diarrhea, Nausea, Vomiting - Patient Data Vitals - Most Recent: Last Vital Signs Temp 98.5 F 06/18/21 04:42 Pulse 67 06/18/21 08:00 Resp 16 06/18/21 08:42 BP 115/66 06/18/21 08:00 Pulse Ox 90 L 06/18/21 08:42 Weight - Most Recent: 162 lb 0.636 oz I&O - Last 24 hours: Intake & Output 06/17/21 06/18/21 06/18/21 22:59 06:59 14:59 Intake Total 840 450 Output Total 740 Balance 840 -290 Lab Results - Last 24 hrs: Laboratory Results - last 24 hr 06/18/21 06/18/21 Range/Units 06:10 06:10 WBC 10.89 (4.0-11.0) K/uL RBC 4.50 (4.50-5.90) M/uL Hgb 14.4 (13.0-17.0) g/dL Hct 42.7 (38.0-50.0) % MCV 94.9 (80.0-98.0) fL MCH 32.0 (27.0-32.0) pg MCHC 33.7 (31.0-37.0) g/dL RDW Std Deviation 44.3 (28.0-62.0) fl RDW Coeff of Kellie 13 (11.0-15.0) % Plt Count 285 (150-400) K/uL MPV 9.20 (7.40-12.00) fL Neut % (Auto) 73.2 (48.0-80.0) % Lymph % (Auto) 17.0 (16.0-40.0) % [place] % (Auto) 9.0 (0.0-15.0) % Eos % (Auto) 0.6 (0.0-7.0) % Baso % (Auto) 0.2 (0.0-1.5) % Neut # (Auto) 8.0 H (1.4-5.7) K/uL Lymph # (Auto) 1.9 (0.6-2.4) K/uL [place] # (Auto) 1.0 H (0.0-0.8) K/uL Eos # (Auto) 0.1 (0.0-0.7) K/uL Baso # (Auto) 0.0 (0.0-0.1) K/uL Sodium 141 (136-148) mmol/L Potassium 4.0 (3.5-5.1) mmol/L Chloride 104 (98-107) mmol/L Carbon Dioxide 29.5 (21.0-32.0) mmol/L BUN 17 (7.0-18.0) mg/dL Creatinine 0.9 (0.8-1.3) mg/dL Est Cr Clr Drug Dosing 68.33 mL/min Estimated GFR (MDRD) > 60.0 ml/min Glucose 110 H (74-106) mg/dL Calcium 8.3 L (8.5-10.1) mg/dL Med Orders - Current: Current Medications Acetaminophen (Acetaminophen 325 Mg Tab) 650 mg PO Q4H PRN PRN Reason: Pain (Mild 1-3)/fever Last Admin: 06/17/21 18:32 Dose: 650 mg Documented by: Albuterol/Ipratropium (Albuterol/Ipratropium 4 Gm Inhalation [place]) 0 gm INH QID [facility] Last Admin: 06/18/21 11:18 Dose: 1 puff Documented by: Enoxaparin Sodium (Enoxaparin 40 Mg/0.4 Ml Syringe) 40 mg SUBCUT Q24H [facility] Last Admin: 06/17/21 16:07 Dose: 40 mg Documented by: Guaifenesin/Codeine Phosphate (Codeine/Guaifenesin 10-100 Mg/5 Ml Syrup 5 Ml Cup) 5 ml PO Q4H PRN PRN Reason: Cough Last Admin: 06/11/21 23:53 Dose: 5 ml Documented by: Pantoprazole Sodium 40 mg/ (Sodium Chloride) 10 mls @ 300 mls/hr IV Q24H [facility] Last Admin: 06/18/21 09:57 Dose: 300 mls/hr Documented by: Levofloxacin/Dextrose 750 mg/ (Premix) 150 mls @ 100 mls/hr IV Q24H [facility] Last Admin: 06/18/21 11:17 Dose: 100 mls/hr Documented by: Ondansetron HCl (Ondansetron 4 Mg/2 Ml Sdv) 4 mg IVPUSH Q4H PRN PRN Reason: Nausea/Vomiting Discontinued Medications Dexamethasone (Dexamethasone 10 Mg/Ml Sdv) 6 mg IVPUSH ONETIME ONE Stop: 06/07/21 12:35 Last Admin: 06/07/21 13:05 Dose: 6 mg Documented by: Dexamethasone (Dexamethasone 4 Mg Tab) 5 mg PO DAILY [facility] Dexamethasone (Dexamethasone 4 Mg Tab) 6 mg PO DAILY [facility] Last Admin: 06/17/21 08:12 Dose: 6 mg Documented by: Remdesivir 200 mg/ Sodium (Chloride) 250 mls @ 250 mls/hr IV ONETIME ONE Stop: 06/07/21 17:59 Last Admin: 09/30/21 18:15 Dose: 250 mls/hr Documented by: Remdesivir 100 mg/ Sodium (Chloride) 100 mls @ 100 mls/hr IV Q24H [facility] Stop: 06/11/21 17:59 Last Admin: 06/11/21 17:45 Dose: 100 mls/hr Documented by: Iopamidol (Iopamidol 755 Mg/Ml 500 Ml Multipack Bottle) 100 ml IVPUSH ONETIME STA Stop: 06/07/21 13:55 Last Admin: 06/07/21 13:55 Dose: 100 ml Documented by: - Exam General: Reports: Alert, Oriented Lungs: Reports: Clear to Auscultation, Normal Respiratory Effort Cardiovascular: Reports: Regular Rate, Regular Rhythm GI/Abdominal Exam: Soft, Non-Tender, No Distention Extremities: No Pedal Edema
== END 2021-06-18 14:40 | disposition home or self-care (01) | DRG 177 ==
LOC: MW.ED 12:26 → MW.MS 15:25
PROVIDERS: ADMIT Student in an Organized Health Care Education/Training Program; ATTEND Student in an Organized Health Care Education/Training Program
PROC: 8E0ZXY6 Isolation (ICD-10-PCS; principal; 2021-06-07)
PROC: XW033E5 Introduction of Remdesivir Anti-infective into Peripheral Vein, Percutaneous Approach, New Technology Group 5 (ICD-10-PCS; 2021-06-07)
PROC: 3E0333Z Introduction of Anti-inflammatory into Peripheral Vein, Percutaneous Approach (ICD-10-PCS; 2021-06-07)
DX: U07.1 COVID-19 (principal); E78.00 Pure hypercholesterolemia, unspecified; J12.82 Pneumonia due to coronavirus disease 2019; M41.9 Scoliosis, unspecified; Z79.899 Other long term (current) drug therapy; J96.01 Acute respiratory failure with hypoxia; I10 Essential (primary) hypertension; R42 Dizziness and giddiness; E78.5 Hyperlipidemia, unspecified; Z86.16 Personal history of COVID-19; Z87.01 Personal history of pneumonia (recurrent)
CPT/HCPCS: 36415; 71275; 80053; 83735; 84484; 85025; 85610; 86140; 93005; 96374; 99285; J1100; Q9967; 71045; 71045-26; 80048; 84100; 84145; 94640; 99291; A9270-GY; C9113; J1650; J1956; J7050; J8540